=== PATIENT | female | born 1980 | race Caucasian/White ===

== ENCOUNTER 2016-08-15 19:22 | Emergency (ER) | payer BC ==
[~2016-08-15] VITALS: Ht 165.1 cm; Wt 81.7 kg
[2016-08-15 19:28] VITALS: Ht 165.1 cm; Wt 81.7 kg
[2016-08-15] MEDS ORDERED: OXYCODONE IR HOME PACK PO ONE (20:15)
[2016-08-15] MEDS ORDERED: MUPIROCIN 2% OINT 22 GM TUBE EXT ONE (20:15)
[2016-08-15] MEDS ORDERED: AMOXICIL/CLAVU 875MG HOME PACK PO ONE (20:15)
[2016-08-15] MEDS ORDERED: OXYC1TAB3 PO (20:17)
[2016-08-15] MEDS ORDERED: AMOX875T PO (20:17)
[2016-08-15 20:50] VITALS: BP 155/98; PULSE 94; TEMP 37.5; O2SAT 96
--- NOTE | 2016-08-15 23:19 | EMERGENCY ROOM VISIT NOTE ---
History First contact with patient: 19:50 Chief Complaint: OTHER COMPLAINT Stated Complaint: RT NIPPLE IS SWOLLEN AND RED AND HAS A LUMP IN IT History of Present Illness The patient is a 36 year old female who presents to the Emergency Room with complaints of pain and irritation to her right nipple for the past 4-5 days. The patient has not hydrated or discharge from the nipple. She is not breast- feeding. She is sexually active with her boyfriend. The patient has had a similar episode about 5 years ago, which resolved spontaneously. She does not have a history of MRSA. She is not having fever, chills, or redness of the breast itself. She does not have additional symptoms. Review of Systems More than 10 systems were reviewed and otherwise negative with the exception of history of present illness. Past Medical/Surgical History No chronic medical disease Family History No pertinent family history Social History Smoking Status: Current Every Day Smoker Current/Historical Medications Scheduled Amoxicillin & Pot Clavulanate (Augmentin 875-125 mg), 1 TAB PO BID Oxycodone Immediate Rel Tab (Roxicodone Ir), 5 MG PO Q6H Allergies Coded Allergies: No Known Allergies (Unverified , 11/08/15) Physical Exam Vital Signs Date Time Temp Pulse Resp B/P Pulse Ox O2 Delivery O2 Flow Rate FiO2 08/15/16 20:50 37.5 94 18 155/98 96 08/15/16 19:28 37.5 94 18 155/98 96 Room Air Pain Rating (0-10): 6.0 Physical Exam VITALS: Vitals are noted on the nurse's note and reviewed by myself. Vital signs stable. GENERAL: Well-developed, well-nourished, white female, who is in no acute distress and resting comfortably. Patient is cooperative with the examination. HEAD: Normocephalic atraumatic. HEART: Regular rate and rhythm without murmurs gallops or rubs. LUNGS: Clear to auscultation bilaterally without wheezes, rales or rhonchi. No retractions or accessory muscle use. CHEST: Examination was performed in the presence of female nursing slot floor person. The right nipple is erythematous and edematous. It is tender on palpation without drainage or discharge. No obvious fluctuance noted. No surrounding erythema or cellulitis of the breast. Medical Decision & Procedures Medications Administered Medications (Trade) Dose Ordered Sig/Daniel Route Start Time Stop Time Status Last Admin Dose Admin Amoxicillin/ Clavulanate Potassium (Augmentin 875MG Home Pack) 1 homepack UD ONCE PO 08/15/16 20:15 08/15/16 20:16 DC 08/15/16 20:42 1 HOMEPACK Oxycodone HCl (Roxicodone Immediate Rel 5MG Home Pack) 1 homepack UD ONCE PO 08/15/16 20:15 08/15/16 20:16 DC 08/15/16 20:42 1 HOMEPACK Mupirocin (Bactroban 2% Oint) 1 appln NOW ONCE EXT 08/15/16 20:15 08/15/16 20:16 DC 08/15/16 20:43 1 APPLN ED Course Physical exam and history were performed. Nursing notes and EMR were reviewed. Patient appears to have an infection of her right nipple. There is no obvious fluctuance on examination. I discussed the case with my attending physician, and we'll start patient on Augmentin. She will also be given topical Bactroban. I engaged case management, and had them provided her information for the breast care center, as she will likely need a surgical evaluation. The patient will be given a short course of OxyIR for pain control. I wrote a note for a few days off work. We discussed other conservative measures such as warm compresses. The patient was invited back to the emergency department anytime with new, worsening, or concerning symptoms. She voices understanding of this plan and rated her discomfort a 2/10 at the time of departure. The chart was completed utilizing [employer] Speech Voice Recognition Software. Grammatical errors, random word insertions, pronoun errors, and incomplete sentences are an occasional consequence of this system due to software limitations, ambient noise, and hardware issues. Any formal questions or concerns about the content, text, or information contained within the body of this dictation should be directly addressed to the provider for clarification. . Medical Decision Differential diagnosis: Etiologies such as cellulitis, abscess, MRSA infection, DVT, necrotizing fasciitis, dermatitis, drug eruption, as well as others were entertained.. Impression Primary Impression: Nipple infection in female Departure Information Dispostion Home / Self-Care Condition GOOD Prescriptions Oxycodone Immediate Rel Tab (ROXICODONE IR) 5 Mg Tab 5 MG PO Q6H for 3 Days, #12 TAB Prov: Clay Raya PA-C 08/15/16 Amoxicillin & Pot Clavulanate (Augmentin 875-125 mg) 1 Tab Tab 1 TAB PO BID for 9 Days, #18 TAB Prov: Clay Raya PA-C 08/15/16 Forms HOME CARE DOCUMENTATION FORM, Work Instructions, Additional Instructions: Patient was seen and evaluated today in the emergency department fo medical care. Return to work on 08/18/2016. Please excuse. IMPORTANT VISIT INFORMATION Patient Instructions My [facility] Additional Instructions You were seen and evaluated today on an emergency basis only. This is not a substitute for, or an effort to provide, complete comprehensive medical care. It is not possible to recognize and treat all injuries or illnesses in a single emergency department visit. For this reason it is recommended that you followup with the [facility] in the next 1-2 days for further care and evaluation. Contact them in the morning to help make the appointment. Amoxicillin Clavulanate (Augmentin) 875mg: Take one pill twice daily for 10 days for your infection. All antibiotics can cause diarrhea. If this occurs and you feel worse or it does not resolve in 1-2 days follow up with your doctor or return to the Emergency Department as this could be signs of serious underlying problems. Any medication can cause an allergic reaction, stop the pills immediately and return to the ER for rash, hives, breathing difficulties, or swelling. Oxycodone (OxyIR) 5mg: Take ONE pill every SIX hours for breakthrough pain. Avoid alcohol, operating machinery or dangerous equipment, working on ladders or roofs, DRIVING, or situations where being under the influence may be dangerous. It is recommended to use an [id number] stool softener such as Colace, 100mg twice daily while taking this medication to avoid constipation. For baseline pain relief you may alternate ibuprofen and acetaminophen every 4 hours for pain control. Take 600 mg ibuprofen (Advil) and then 4 hours later take 1000 mg acetaminophen (Tylenol). Do not take more than 3000 mg acetaminophen in a single day. Apply Bactroban 2-3 times daily You are welcome to return to the emergency department anytime with new, worsening, or concerning symptoms. Work Instructions Additional Work Instructions: Patient was seen and evaluated today in the emergency department for medical care. Return to work on 08/18/2016. Please excuse.
[2016-08-23] MEDS ORDERED: SULF800T23 PO (11:55)
[2016-08-23] MEDS ORDERED: CEPH500C2 PO (11:55)
== END 2016-08-15 20:51 | disposition home or self-care (01) ==
LOC: C.EDB 19:25 → C.EDA 20:51
DX: N61.0 Mastitis without abscess (principal); F17.210 Nicotine dependence, cigarettes, uncomplicated

== ENCOUNTER 2016-08-16 23:52 | Emergency (ER) | payer BC ==
[~2016-08-16] VITALS: Ht 165.1 cm; Wt 81.5 kg
[~2016-08-16 23:52] MED LIST: AMOX875T PO; OXYC1TAB3 PO
[2016-08-16 23:56] VITALS: Ht 165.1 cm; Wt 81.5 kg
[2016-08-17] MEDS ORDERED: KETOROLAC TROMETHAMINE 30 MG/ML VIAL IV STA (00:22)
[2016-08-17] MEDS ORDERED: ONDANSETRON INJ 2 MG/ML 2 ML VIAL IV STA (00:22)
[2016-08-17] MEDS ORDERED: SODIUM CHLORIDE 0.9% 1000ML 1,000 ML IV STA (00:22)
[2016-08-17] MEDS ORDERED: CEFTRIAXONE SOD INJ 1 GM ADDVIAL IV STA (00:27)
--- NOTE | 2016-08-17 00:29 | EMERGENCY ROOM VISIT NOTE ---
History Report prepared by Olga Lidia: Leonardo Zamorano Under the Supervision of: Dr. Hudson Santa D.O. First contact with patient: 00:04 Chief Complaint: INFECTION Stated Complaint: INFECTION IN RT BREAST Nursing Triage Summary: Patient c/o right breast pain. States, "I was seen here last night for this and went to my doctor today. They told me to come back in if it got worse and now it's spreading everywhere." Started on abx today. History of Present Illness The patient is a 36 year old female who presents to the Emergency Room with complaints of a worsening infection in her left breast that she acquired a few days prior to arrival. The patient states that she was in the Emergency Department yesterday and was prescribed Augmentin, and two other medications. She was told to return if the infection spread/worsened. She has been experiencing hot/cold flashes, but has not recorded any specific fevers. She denies any drainage from the infection. The patient also notes that she is now becoming nauseous. She is scheduled to see a specialist on of this week. Source of History: patient Onset: A few days APPLIED BEHAVIOR SPECIALIST Quality: other (Infection) Timing: waxes/wanes Associated Symptoms: + chills, + fevers, + nausea Review of Systems See HPI for pertinent positives & negatives. A total of 10 systems reviewed and were otherwise negative. Past Medical & Surgical Surgical Problems: (1) S/P ureteral reimplantation Family History Cancer Hypertension Social History Smoking Status: Current Every Day Smoker Marital Status: in relationship Housing Status: lives with family Occupation Status: employed Current/Historical Medications Scheduled Amoxicillin & Pot Clavulanate (Augmentin 875-125 mg), 1 TAB PO BID Oxycodone Immediate Rel Tab (Roxicodone Ir), 5 MG PO Q6H Sulfa/Trimethoprim (Bactrim Ds 800MG/160MG), 1 TAB PO BID Allergies Coded Allergies: No Known Allergies (Unverified , 08/17/16) Physical Exam Vital Signs Date Time Temp Pulse Resp B/P Pulse Ox O2 Delivery O2 Flow Rate FiO2 08/17/16 02:36 88 18 106/64 96 08/17/16 01:23 87 18 102/56 96 Room Air 08/16/16 23:56 96 18 136/89 97 Room Air Physical Exam GENERAL: Patient is awake, alert, and in no acute distress. Patient is resting comfortably and showing no signs of anxiety EYES: The conjunctivae are clear. The pupils are round and reactive. EARS, NOSE, MOUTH AND THROAT: The nose is without any evidence of any deformity. Mucous membranes are moist tongue is midline NECK: The neck is nontender and supple. RESPIRATORY: Normal respiratory effort is noted there is no evidence of wheezing rhonchi or rales CARDIOVASCULAR: Regular rate and rhythm noted there no murmurs rubs or gallops normal S1 normal S2 GASTROINTESTINAL: The abdomen is soft. Bowel sounds are present in all quadrants. Abdomen is nontender MUSCULOSKELETAL/EXTREMITIES: There is no evidence of gross deformity full range of motion is noted in the hips and shoulders SKIN: There is erythema and swelling on the right breast especially around the nipple. Cellulitis is present extending past the ink villalobos placed last evening. No discharge noted. There are no petechiae, pallor or cyanosis noted. NEUROLOGIC: Patient is awake alert and oriented x3 strength is symmetric patellar reflexes are 2+ bilaterally Medical Decision & Procedures ER Provider Diagnostic Interpretation: Ultrasound of the right breast was obtained in the emergency department. The report was reviewed. Preliminary Findings Only See Final Report For Complete Findings US RIGHT BREAST: Complex collection within a swollen nipple measuring approximately 1.7 cm x 0.9 cm x 1.9 cm. There is a shadowing echogenicity within this collection measuring up to 4 mm. Findings are nonspecific and could be related to underlying infection/abscess formation. Underlying malignancy is not ruled out and should be considered if symptoms do not resolve after appropriate therapy. Dilated ducts are also identified in the subareolar region. Close followup recommended. Radiologist: Suresh Peralta M.D. Study ready at 01:35 and initial results transmitted at 02:09 Laboratory Results 08/17/16 00:36 Red Blood Count 3.96, Mean Corpuscular Volume 88.4, Mean Corpuscular Hemoglobin 30.3, Mean Corpuscular Hemoglobin Concent 34.3, Mean Platelet Volume 9.6, Neutrophils (%) (Auto) 57.6, Lymphocytes (%) (Auto) 32.1, Monocytes (%) (Auto) 8.1, Eosinophils (%) (Auto) 1.6, Basophils (%) (Auto) 0.5, Neutrophils # (Auto) 5.65, Lymphocytes # (Auto) 3.16, Monocytes # (Auto) 0.80, Eosinophils # (Auto) 0.16, Basophils # (Auto) 0.05 08/17/16 00:36 Test 08/17/16 00:36 White Blood Count 9.83 K/uL (4.8-10.8) Red Blood Count 3.96 M/uL (4.2-5.4) Hemoglobin 12.0 g/dL (12.0-16.0) Hematocrit 35.0 % (37-47) Mean Corpuscular Volume 88.4 fL (80-100) Mean Corpuscular Hemoglobin 30.3 pg (25-34) Mean Corpuscular Hemoglobin Concent 34.3 g/dl (32-36) Platelet Count 284 K/uL (130-400) Mean Platelet Volume 9.6 fL (7.4-10.4) Neutrophils (%) (Auto) 57.6 % Lymphocytes (%) (Auto) 32.1 % Monocytes (%) (Auto) 8.1 % Eosinophils (%) (Auto) 1.6 % Basophils (%) (Auto) 0.5 % Neutrophils # (Auto) 5.65 K/uL (1.4-6.5) Lymphocytes # (Auto) 3.16 K/uL (1.2-3.4) Monocytes # (Auto) 0.80 K/uL (0.11-0.59) Eosinophils # (Auto) 0.16 K/uL (0-0.5) Basophils # (Auto) 0.05 K/uL (0-0.2) RDW Standard Deviation 45.8 fL (36.4-46.3) RDW Coefficient of Variation 14.1 % (11.5-14.5) Immature Granulocyte % (Auto) 0.1 % Immature Granulocyte # (Auto) 0.01 K/uL (0.00-0.02) Anion Gap 10.0 mmol/L (3-11) Est Creatinine Clear Calc Drug Dose 118.3 ml/min Estimated GFR () 130.1 Estimated GFR (Non- 112.3 BUN/Creatinine Ratio 18.1 (10-20) Calcium Level 8.6 mg/dl (8.5-10.1) Total Bilirubin < 0.1 mg/dl (0.2-1) Direct Bilirubin < 0.1 mg/dl (0-0.2) Aspartate Amino Transf (AST/SGOT) 11 U/L (15-37) Alanine Aminotransferase (ALT/SGPT) 18 U/L (12-78) Alkaline Phosphatase 95 U/L (45-117) Total Protein 6.8 gm/dl (6.4-8.2) Albumin 3.7 gm/dl (3.4-5.0) Human Chorionic Gonadotropin, Qual NEG (NEG) Laboratory results per my review. Medications Administered Medications (Trade) Dose Ordered Sig/Daniel Route Start Time Stop Time Status Last Admin Dose Admin Ketorolac Tromethamine 30 mg 30 mg NOW STAT IV 08/17/16 00:22 08/17/16 00:24 DC 08/17/16 00:46 30 MG Sodium Chloride (Nss 1000ml) 1,000 ml @ 999 mls/hr Q1H1M STAT IV 08/17/16 00:22 08/17/16 01:22 DC 08/17/16 00:44 999 MLS/HR Ondansetron HCl (Zofran Inj) 4 mg NOW STAT IV 08/17/16 00:22 08/17/16 00:24 DC 08/17/16 00:44 4 MG Ceftriaxone Sodium (Rocephin Inj) 1 gm NOW STAT IV 08/17/16 00:27 08/17/16 00:28 DC 08/17/16 00:47 1 GM Trimethoprim/ Sulfamethoxazole (Septra Ds 800/ 160MG Tab) 1 tab NOW STAT PO 08/17/16 01:05 08/17/16 01:06 DC 08/17/16 01:27 1 TAB ED Course 0019: The patient was evaluated in room B8. A complete history and physical examination were performed. 0022: Ordered Zofran 4 mg IV, Sodium Chloride 1000 mL @ 999 mL/hr IV, Toradol 30 mg IV. 0027: Ordered Rocephin 1 gm IV. 0105: Ordered Septra Dx 1 tabled PO. 0218: I discussed the case with Dr. Velasquez - General Surgery, he will see the patient in his office on Monday. 0230: After discussing the results of the visit with the patient she is agreeable to be discharged home and visit with Dr. Velasquez on Monday. Medical Decision The patient's history was concerning for swelling and redness of the skin. Differential diagnosis: Etiologies such as cellulitis, abscess, MRSA infection, DVT, necrotizing fasciitis, dermatitis, drug eruption, as well as others were entertained.. Nursing notes reviewed. The patient is a 36-year-old female who presented to emergency department for an evaluation of painful and red right breast. The patient was seen at day previous for a similar episode. She was placed on antibiotic. Ultrasound did reveal a small fluid collection but was not very large. The surrounding cellulitis does appear to be somewhat worsened. The patient was given a different antibiotic in the emergency department. She was also treated with IV fluids IV pain medicine IV antiemetics. I discussed her case with the on-call general surgeon. He is agreed to see the patient in close follow-up. If the antibiotic still not improved the patient's situation she will likely need to have this area drained. Given the fact it is on her breast I would defer this procedure to the surgeon. The patient was encouraged however to return to the emergency apartment immediately if symptoms change worsen or if the need arises. Consults Time Called: [phone] Consulting Physician: Dr. Velasquez - General Surgery Returned Call: [phone] I discussed the case with Dr. Velasquez - General Surgery, he will see the patient in his office on Monday. Impression Primary Impression: Nipple infection in female Scribe Attestation The scribe's documentation has been prepared under my direction and personally reviewed by me in its entirety. I confirm that the note above accurately reflects all work, treatment, procedures, and medical decision making performed by me. Departure Information Dispostion Home / Self-Care Prescriptions Sulfa/Trimethoprim (Bactrim Ds 800MG/160MG) Tab 1 TAB PO BID, #14 TAB Prov: Hudson Santa, 08/17/16 Referrals No Doctor, Assigned (PCP) Forms HOME CARE DOCUMENTATION FORM, IMPORTANT VISIT INFORMATION, WORK / SCHOOL INSTRUCTIONS Patient Instructions My [facility] Additional Instructions Continue using Motrin and Tylenol as directed for mild pain. Continue using the Augmentin. Stop using the doxycycline and start using the Bactrim as soon as possible. Follow-up with your family for reevaluation. Continue to use warm compresses to the area 2-3 times a day.
[2016-08-17 00:49] LABS: BASO % 0.5 %; BASO ABS # 0.05 K/uL (0-0.2); COMPLETE YES; EOS % 1.6 %; IG% 0.1 %; LYMPH % 32.1 %; LYMPH ABS # 3.16 K/uL (1.2-3.4); MEAN CELL VOLUME 88.4 fL (80-100); MEAN CORPUSCULAR HEMOGLOBIN 30.3 pg (25-34); MEAN CORPUSCULAR HGB CONC 34.3 g/dl (32-36); MEAN PLATELET VOLUME 9.6 fL (7.4-10.4); MONO % 8.1 %; NEUT % 57.6 %; PLATELET COUNT 284 K/uL (130-400); RED BLOOD COUNT 3.96 M/uL (4.2-5.4); WHITE BLOOD COUNT 9.83 K/uL (4.8-10.8)
[2016-08-17] MEDS ORDERED: SULFAMETHOXAZOLE/TRIMETHOPRIM DS 800/160MG TAB PO STA (01:05)
[2016-08-17 01:10] LABS: ALT/SGPT 18 U/L (12-78); AST/SGOT 11 U/L (15-37); BLOOD UREA NITROGEN 13 mg/dl (7-18); BUN/CREATININE RATIO 18.1 (10-20); CALCIUM 8.6 mg/dl (8.5-10.1); CARBON DIOXIDE 25 mmol/L (21-32); CHLORIDE 108 mmol/L (98-107); GLUCOSE 84 mg/dl (70-99); POTASSIUM 3.8 mmol/L (3.5-5.1); SODIUM 143 mmol/L (136-145)
[2016-08-17 01:13] LABS: ALKALINE PHOSPHATASE 95 U/L (45-117)
[2016-08-17 01:16] LABS: PREG INTERNAL NEGATIVE QC NEG CLEAR BACKGROUND; PREG INTERNAL POSITIVE QC POS CONTROL LINE
[2016-08-17] MEDS ORDERED: SULF800T23 PO (01:47)
[2016-08-17 02:36] VITALS: BP 106/64; PULSE 88; O2SAT 96
--- NOTE | 2016-08-17 07:17 | DIAGNOSTIC IMAGING REPORT ---
Right BREAST LIMITED ULTRASOUND CLINICAL HISTORY: right breast swelling COMPARISON STUDY: None. FINDINGS: Real-time sonographic imaging of the right periareolar breast was performed. There is edema within the right periareolar breast with a few borderline subareolar ducts. Focal complex collection within the subareolar breast which measures 1.7 x 1.9 x 0.9 cm. This contains a 4 mm slightly echogenic shadowing focus. This could represent a small abscess, dilated duct, or a mass. IMPRESSION: Focal complex collection within the right subareolar breast which measures 1.9 x 1.7 x 0.9 cm. This could represent a small abscess, dilated duct, or a mass. Follow-up imaging at a dedicated breast care center is recommended for further evaluation. Electronically signed by: Vitor Chávez M.D. 08/17/2016 7:16 AM Dictated Date/Time: 08/17/2016 7:12 AM
[2016-08-23] MEDS ORDERED: CEPH500C2 PO (11:55)
[2016-08-23] MEDS ORDERED: SULF800T23 PO (11:55)
== END 2016-08-17 02:36 | disposition home or self-care (01) ==
LOC: C.EDB 23:53
DX: N61.0 Mastitis without abscess (principal); Z82.49 Family history of ischemic heart disease and other diseases of the circulatory system; F17.200 Nicotine dependence, unspecified, uncomplicated

== ENCOUNTER 2016-08-19 10:13 | Inpatient (IN) | payer BC ==
[~2016-08-19] VITALS: Ht 165.1 cm; Wt 81.6 kg
[~2016-08-19 10:13] MED LIST changes: +SULF800T23 PO
[2016-08-19 12:13] VITALS: BP 106/72; PULSE 66; TEMP 36.7; O2SAT 95; Ht 165.1 cm; Wt 81.6 kg
[2016-08-19] MEDS ORDERED: ACETAMINOPHEN 325 MG TAB PO PRN (12:30)
[2016-08-19] MEDS ORDERED: MoRPHine SULFATE 4 MG/ML 1 ML CARP\\VIAL IV PRN (12:30)
[2016-08-19] MEDS ORDERED: ONDANSETRON INJ 2 MG/ML 2 ML VIAL IV PRN (12:30)
[2016-08-19] MEDS ORDERED: MoRPHine SULFATE 10 MG/ML CARP/VIAL IV PRN (12:30)
--- NOTE | 2016-08-19 12:37 | History and Physical ---
History & Physical Date & Time of Service: Aug 19, 2016 at 12:36 Chief Complaint: Right Breast Mastitis Primary Care Physician: No Doctor, Assigned History of Present Illness Source: patient pt began with right breast discomfort beginning Monday...was seen in ER monday early am for worsening symptoms. US showed very small/nondrainable fluid. she has been on oral antibiotics ever since. the redness/pain has worsened since then. no drainage. Past Medical/Surgical History Surgical Problems: (1) S/P ureteral reimplantation Status: Resolved Family History Cancer Hypertension Social History Smoking Status: Current Every Day Smoker Marital Status: in relationship Occupational Status: employed Multi-Drug Resistant Organisms History of MDRO: No Allergies Coded Allergies: No Known Allergies (Unverified , 08/17/16) Home Medications Scheduled Amoxicillin & Pot Clavulanate (Augmentin 875-125 mg), 1 TAB PO BID Sulfa/Trimethoprim (Bactrim Ds 800MG/160MG), 1 TAB PO BID Review of Systems Integumentary: + problem reported (as per HPI) Physical Exam General Appearance: + mild distress Head: normocephalic, atraumatic Eyes: EOMI ENT: hearing grossly normal Neck: supple, no adenopathy Respiratory/Chest: no respiratory distress, no accessory muscle use Cardiovascular: no edema, normal peripheral pulses Abdomen/GI: non tender, soft Extremities/Musculoskelatal: normal inspection Neurologic/Psych: normal mood/affect, oriented x 3 Skin: + pertinent finding (area of erythema on right breast. enlarged nipple. no defined abcess/fluid detectable. no nipple drainage. warm to touch. tender. ) Diagnostics Laboratory Results Results Past 24 Hours Test 08/19/16 12:26 Range/Units Impression Assessment and Plan right breast mastitis failing outpt treatment will admit/iv antibiotics US...if fluid, IR will attempt needle drainage OR drainage if last resort ID consult supportive care VTE Prophylaxis VTE Risk Assessment Done? Y/N: Yes Risk Level: Moderate Given or contraindicated: Enoxaparin (Lovenox)SQ
[2016-08-19] MEDS ORDERED: PIPERACILL/TAZOBAC CONSULT ACTIVE PRN (13:00)
[2016-08-19 13:09] LABS: BASO % 0.6 %; BASO ABS # 0.04 K/uL (0-0.2); COMPLETE YES; EOS % 0.1 %; HEMATOCRIT 33.3 % (37-47); IG% 0.3 %; LYMPH % 28.8 %; LYMPH ABS # 2.01 K/uL (1.2-3.4); MEAN CELL VOLUME 88.8 fL (80-100); MEAN CORPUSCULAR HEMOGLOBIN 30.7 pg (25-34); MEAN CORPUSCULAR HGB CONC 34.5 g/dl (32-36); MEAN PLATELET VOLUME 9.3 fL (7.4-10.4); MONO % 9.8 %; NEUT % 60.4 %; PLATELET COUNT 268 K/uL (130-400); RED BLOOD COUNT 3.75 M/uL (4.2-5.4); WHITE BLOOD COUNT 6.97 K/uL (4.8-10.8)
[2016-08-19] MEDS ORDERED: PIPERACILL/TAZOBAC IV 3.375 GM in DEXTROSE 5% 100ML 100 ML IV ONE (13:30)
[2016-08-19 13:39] LABS: BUN/CREATININE RATIO 12.2 (10-20); CALCIUM 8.6 mg/dl (8.5-10.1); CREATININE 0.6 mg/dl (0.60-1.20); POTASSIUM 3.7 mmol/L (3.5-5.1)
[2016-08-19 13:52] LABS: PREG INTERNAL NEGATIVE QC NEG CLEAR BACKGROUND; PREG INTERNAL POSITIVE QC POS CONTROL LINE
[2016-08-19 14:00] LABS: PROTHROMBIN TIME (PATIENT) 11.2 SECONDS (9.0-12.0)
[2016-08-19] MEDS: D5W AND 1/2NSS + 20MEQ KCL 1,000 ML IV SCH ×2 (14:01→22:42)
--- NOTE | 2016-08-19 14:06 | Medical Consult ---
Consultation Date of Consultation: Aug 19, 2016. Attending Physician: Devon Velasquez D.O. Reason for Consultation: mastitis History of Present Illness 36-year-old female in prior good health was well until approximately 10 days ago when she noted onset of redness and swelling of her right breast, with swelling of her right nipple. She eventually went to the emergency room where she was diagnosed with mastitis since started on oral Augmentin. She returned the next day with worsening redness and swelling, with ultrasound showing possibility of small developing abscess. She was given IV antibiotics in sent home on Bactrim, but was seen today by Dr. Velasquez, and referred for admission because of worsening redness, swelling, pain and tenderness. Has not had significant fever but some chills and fatigue. Has been started empirically on IV Zosyn. Of note, I took care of her son approximately 1 year ago for MRSA infection. Past Medical/Surgical History Medical Problems: (1) Nipple infection in female Status: Acute (2) Threatened in early Status: Acute (3) Vaginal bleeding in patient at less than 20 weeks gestation Status: Acute Medical Problems: (1) Mastitis in female (2) Mastitis in female Surgical Problems: (1) S/P ureteral reimplantation Family History Cancer Hypertension Social History Smoking Status: Current Every Day Smoker Marital Status: in relationship Housing Status: lives with family Occupation Status: employed Allergies Coded Allergies: No Known Allergies (Unverified , 08/17/16) Current Inpatient Medications Current Inpatient Medications Medications (Trade) Dose Ordered Sig/Daniel Route Start Time Stop Time Status Last Admin Dose Admin Enoxaparin Sodium 40 mg 40 mg DAILY SQ 08/20/16 09:00 09/19/16 08:59 UNV Potassium Chloride/Dextrose/ Sod Cl 1,000 ml @ 125 mls/hr Q8H IV 08/19/16 13:00 09/18/16 12:59 08/19/16 14:01 125 MLS/HR Piperacillin Sod/ Tazobactam Sod/ Dextrose (Zosyn Iv/D5 100ml) 115 ml @ 28.7 mls/hr Q8H IV 08/19/16 22:00 08/29/16 21:59 Ondansetron HCl (Zofran Inj) 4 mg Q4H PRN IV 08/19/16 12:30 09/18/16 12:29 Acetaminophen (Tylenol Tab) 650 mg Q6H PRN PO 08/19/16 12:30 09/18/16 12:29 Ibuprofen (Motrin Tab) 600 mg Q6H PRN PO 08/19/16 12:30 09/18/16 12:29 Acetaminophen/ Hydrocodone Bitart ([place] 5/325 Tab) 1 tab Q4H PRN PO 08/19/16 12:30 09/02/16 12:29 Morphine Sulfate (MoRPHine SULFATE INJ) 3 mg Q1H PRN IV 08/19/16 12:30 09/02/16 12:29 Acetaminophen/ Hydrocodone Bitart ([place] 5/325 Tab) 2 tab Q4H PRN PO 08/19/16 12:30 09/02/16 12:29 Morphine Sulfate (MoRPHine SULFATE INJ) 5 mg Q1H PRN IV 08/19/16 12:30 09/02/16 12:29 Diphenhydramine HCl (Benadryl Cap) 25 mg Q4H PRN PO 08/19/16 12:30 09/18/16 12:29 Piperacillin Sod/ Tazobactam Sod (Consult) 1 ea UD PRN N/A 08/19/16 13:00 09/18/16 12:59 Review of Systems Constitutional: + chills, + fatigue, No fever Eyes: No problem reported ENT: No problem reported Respiratory: No problem reported Cardiovascular: No problem reported Abdomen: No problem reported Musculoskeletal: No problem reported Genitourinary - Female: No problem reported Neurologic: No problem reported Psychiatric: No problem reported Endocrine: No problem reported Hematologic / Lymphatic: No problem reported Integumentary: + new/changing skin lesions Allergic / Immunologic: No problem reported Physical Exam Date Time Temp Pulse Resp B/P Pulse Ox O2 Delivery O2 Flow Rate FiO2 08/19/16 12:13 36.7 66 18 106/72 95 Room Air General Appearance: WD/WN, no apparent distress Head: normocephalic, atraumatic Eyes: normal inspection, EOMI, sclerae normal ENT: normal ENT inspection, hearing grossly normal, pharynx normal Neck: supple, no adenopathy, thyroid normal, trachea midline Respiratory/Chest: chest non-tender, lungs clear, normal breath sounds, no respiratory distress Cardiovascular: regular rate, rhythm, no gallop, no murmur Abdomen/GI: normal bowel sounds, non tender, soft, no organomegaly Back: normal inspection, no CVA tenderness Extremities/Musculoskelatal: no calf tenderness, normal capillary refill, non- tender Neurologic/Psych: alert, normal mood/affect, oriented x 3 Skin: normal color, warm/dry, + pertinent finding (right central breast swelling, erythema, and tenderness with enlarged niplle) Lymphatic: no adenopathy Laboratory Results Last 24 Hours Test 08/19/16 12:57 08/19/16 13:35 White Blood Count 6.97 K/uL Red Blood Count 3.75 M/uL Hemoglobin 11.5 g/dL Hematocrit 33.3 % Mean Corpuscular Volume 88.8 fL Mean Corpuscular Hemoglobin 30.7 pg Mean Corpuscular Hemoglobin Concent 34.5 g/dl Platelet Count 268 K/uL Mean Platelet Volume 9.3 fL Neutrophils (%) (Auto) 60.4 % Lymphocytes (%) (Auto) 28.8 % Monocytes (%) (Auto) 9.8 % Eosinophils (%) (Auto) 0.1 % Basophils (%) (Auto) 0.6 % Neutrophils # (Auto) 4.21 K/uL Lymphocytes # (Auto) 2.01 K/uL Monocytes # (Auto) 0.68 K/uL Eosinophils # (Auto) 0.01 K/uL Basophils # (Auto) 0.04 K/uL RDW Standard Deviation 45.9 fL RDW Coefficient of Variation 14.1 % Immature Granulocyte % (Auto) 0.3 % Immature Granulocyte # (Auto) 0.02 K/uL Sodium Level 137 mmol/L Potassium Level 3.7 mmol/L Chloride Level 105 mmol/L Carbon Dioxide Level 24 mmol/L Anion Gap 8.0 mmol/L Blood Urea Nitrogen 7 mg/dl Creatinine 0.60 mg/dl Est Creatinine Clear Calc Drug Dose 138.1 ml/min Estimated GFR () 136.9 Estimated GFR (Non- 118.1 BUN/Creatinine Ratio 12.2 Random Glucose 88 mg/dl Calcium Level 8.6 mg/dl Human Chorionic Gonadotropin, Qual NEG Prothrombin Time 11.2 SECONDS Prothromb Time International Ratio 1.0 Assessment & Plan Right mastitis with probable developing abscess. Worried about possible MRSA infection given family member with MRS last year. Will add vancomycin, await ultrasound for need for drainage. Will follow.
[2016-08-19] MEDS ORDERED: VANCOMYCIN CONSULT ACTIVE PRN (14:15)
--- NOTE | 2016-08-19 14:35 | Pharmacy Progress Note ---
Pharmacy Antibiotic Consult Date of Service: Aug 19, 2016. Pharmacy Dosing Scope Pharmacy is consulted to initiate VANC/ZOSYN-IV dosing therapy, order appropriate labs and adjust drug dose/frequency. Subjective The patient is a 36 year old female admitted on Aug 19, 2016 at 11:31 ordered broad spectrum antibiotics for worsened R mastitis and possible developing abscess. Pertinent PMH: failed out-pt therapy (seen in ED earlier in week on Augmentin/ Bactrim), family history for MRSA Objective Height (Feet): 5 Height (Inches): 5.00 Weight (Kilograms): 81.600 Lab Results (24hrs): Laboratory Tests Test 08/19/16 12:57 BUN/Creatinine Ratio 12.2 Blood Urea Nitrogen 7 mg/dl Creatinine 0.60 mg/dl White Blood Count 6.97 K/uL Red Blood Count 3.75 M/uL Hemoglobin 11.5 g/dL Hematocrit 33.3 % Mean Corpuscular Volume 88.8 fL Mean Corpuscular Hemoglobin 30.7 pg Mean Corpuscular Hemoglobin Concent 34.5 g/dl Platelet Count 268 K/uL Mean Platelet Volume 9.3 fL Neutrophils (%) (Auto) 60.4 % Lymphocytes (%) (Auto) 28.8 % Monocytes (%) (Auto) 9.8 % Eosinophils (%) (Auto) 0.1 % Basophils (%) (Auto) 0.6 % Neutrophils # (Auto) 4.21 K/uL Lymphocytes # (Auto) 2.01 K/uL Monocytes # (Auto) 0.68 K/uL Eosinophils # (Auto) 0.01 K/uL Basophils # (Auto) 0.04 K/uL Recent Pertinent Medications * Out-pt Augmentin/Bactrim Assessment & Plan ZOSYN-IV: 3.375 grams IV x 1, then 3.375g IV CI every 8 hours for est CRCL > 20mL/min. VANC-IV: * Estimated p'kinetics: Vd~07L/kg, Ke~0.1189hr-1, T1/2~5.8 hours * Loading dose: VANC 2000mg (25 mg/kg) IV X 1 dose then: * Maintenance Dose: VANC 1250mg (~15 mg/kg) IV every 8 hours. * Goal trough level estimate: between 15 - 20 mcg/mL. * VANC trough level has been ordered @ [facility] prior to 08/20/16 2000 dose. Pharmacy will continue to follow and will adjust dose/frequency as necessary. Thank you
[2016-08-19] MEDS ORDERED: VANCOMYCIN INJ 2,000 MG in SODIUM CHLORIDE 0.9% 500ML 500 ML IV ONE (14:45)
[2016-08-19] MEDS: HYDROCODONE/ACETAMOPHEN 5/325MG TAB PO PRN ×2 (15:36→20:00)
--- NOTE | 2016-08-19 15:45 | DIAGNOSTIC IMAGING REPORT ---
RIGHT BREAST ULTRASONOGRAPHY CLINICAL HISTORY: Progressive mastitis COMPARISON STUDY: 08/17/2016 FINDINGS: There is diffuse anterior breast edema. The nipple is markedly edematous. The nipple contains a complex fluid collection measuring 17 x 10 x 15 mm. Within this collection is a 4 mm hyperechoic lesion demonstrating shadowing. This could represent a papilloma or other ductal mass. IMPRESSION: 1. Anterior breast edema without evidence of a focal breast abscess 2. Markedly edematous right nipple containing a central complex fluid collection measuring 17 x 10 x 15 mm. Within this collection is a 4 mm hyperechoic lesion demonstrating shadowing. This could represent a papilloma, other ductal mass, or inspissated inflammatory debris. Biopsy might be considered in follow-up. Images findings were discussed with Dr. Velasquez. Electronically signed by: Maico Tolbert M.D. 08/19/2016 3:44 PM Dictated Date/Time: 08/19/2016 3:30 PM
[2016-08-19 16:40] VITALS: BP 104/66; PULSE 74; TEMP 36.8; O2SAT 95
[2016-08-19] MEDS ORDERED: NURSING VERBAL MED ORDER ONE ×2 (17:00→17:30)
[2016-08-19] MEDS ORDERED: NICOTINE 21 MG/24 HR TDSY EXT ONE (17:30)
[2016-08-19] MEDS ORDERED: INFLUENZA VIRUS QUAD VACCINE 0.5 ML SYR IM. ONE (18:00)
[2016-08-19] MEDS ORDERED: INFLUENZA ADMINISTRATION CHARGE ONE (18:00)
[2016-08-19] MEDS: VANCOMYCIN INJ 1,250 MG in SODIUM CHLORIDE 0.9% 250ML 250 ML IV SCH (20:00)
[2016-08-19] MEDS: IBUPROFEN 600 MG TAB PO PRN (20:00)
[2016-08-19] MEDS: PIPERACILL/TAZOBAC IV 3.375 GM in DEXTROSE 5% 100ML 100 ML IV SCH (22:42)
[2016-08-19 23:05] VITALS: BP 98/65; PULSE 71; TEMP 36.7; O2SAT 96
[2016-08-20] MEDS: HYDROCODONE/ACETAMOPHEN 5/325MG TAB PO PRN ×4 (01:34→20:50)
[2016-08-20] MEDS: IBUPROFEN 600 MG TAB PO PRN ×3 (03:23→20:50)
[2016-08-20] MEDS: VANCOMYCIN INJ 1,250 MG in SODIUM CHLORIDE 0.9% 250ML 250 ML IV SCH ×3 (03:23→19:41)
[2016-08-20] MEDS: PIPERACILL/TAZOBAC IV 3.375 GM in DEXTROSE 5% 100ML 100 ML IV SCH ×3 (05:47→22:17)
[2016-08-20] MEDS: D5W AND 1/2NSS + 20MEQ KCL 1,000 ML IV SCH ×3 (05:47→20:45)
--- NOTE | 2016-08-20 06:37 | Surgery Progress Note ---
Surgery Progress Note Date of Service Aug 20, 2016. Subjective Post OP Day: HD 2 + complaints (pain improved), + diet (regular), + feeling well, No nausea, No vomiting Objective Vital Signs: Date Time Temp Pulse Resp B/P Pulse Ox O2 Delivery O2 Flow Rate FiO2 08/19/16 23:05 36.7 71 15 98/65 96 Room Air 08/19/16 20:00 Room Air 08/19/16 17:13 Room Air 08/19/16 16:40 36.8 74 16 104/66 95 Room Air 08/19/16 12:13 36.7 66 18 106/72 95 Room Air General Appearance: WD/WN, no apparent distress Head: normocephalic, atraumatic Neck: supple, trachea midline Respiratory/Chest: lungs clear, + pertinent finding (right breast with less erythema; no fluctuance) Cardiovascular: regular rate, rhythm Abdomen: normal bowel sounds, non tender, non distended, soft Extremities: non-tender, no pedal edema Laboratory Results: Results Past 24 Hours Test 08/19/16 12:57 08/19/16 13:35 Range/Units White Blood Count 6.97 4.8-10.8 K/uL Red Blood Count 3.75 4.2-5.4 M/uL Hemoglobin 11.5 12.0-16.0 g/dL Hematocrit 33.3 37-47 % Mean Corpuscular Volume 88.8 80-100 fL Mean Corpuscular Hemoglobin 30.7 25-34 pg Mean Corpuscular Hemoglobin Concent 34.5 32-36 g/dl Platelet Count 268 130-400 K/uL Mean Platelet Volume 9.3 7.4-10.4 fL Neutrophils (%) (Auto) 60.4 % Lymphocytes (%) (Auto) 28.8 % Monocytes (%) (Auto) 9.8 % Eosinophils (%) (Auto) 0.1 % Basophils (%) (Auto) 0.6 % Neutrophils # (Auto) 4.21 1.4-6.5 K/uL Lymphocytes # (Auto) 2.01 1.2-3.4 K/uL Monocytes # (Auto) 0.68 0.11-0.59 K/uL Eosinophils # (Auto) 0.01 0-0.5 K/uL Basophils # (Auto) 0.04 0-0.2 K/uL RDW Standard Deviation 45.9 36.4-46.3 fL RDW Coefficient of Variation 14.1 11.5-14.5 % Immature Granulocyte % (Auto) 0.3 % Immature Granulocyte # (Auto) 0.02 0.00-0.02 K/uL Sodium Level 137 136-145 mmol/L Potassium Level 3.7 3.5-5.1 mmol/L Chloride Level 105 98-107 mmol/L Carbon Dioxide Level 24 21-32 mmol/L Anion Gap 8.0 3-11 mmol/L Blood Urea Nitrogen 7 7-18 mg/dl Creatinine 0.60 0.60-1.20 mg/dl Est Creatinine Clear Calc Drug Dose 138.1 ml/min Estimated GFR () 136.9 Estimated GFR (Non- 118.1 BUN/Creatinine Ratio 12.2 10-20 Random Glucose 88 70-99 mg/dl Calcium Level 8.6 8.5-10.1 mg/dl Human Chorionic Gonadotropin, Qual NEG NEG Prothrombin Time 11.2 9.0-12.0 SECONDS Prothromb Time International Ratio 1.0 0.9-1.1 Diagnostic Interpretation: RIGHT BREAST ULTRASONOGRAPHY CLINICAL HISTORY: Progressive mastitis COMPARISON STUDY: 08/17/2016 FINDINGS: There is diffuse anterior breast edema. The nipple is markedly edematous. The nipple contains a complex fluid collection measuring 17 x 10 x 15 mm. Within this collection is a 4 mm hyperechoic lesion demonstrating shadowing. This could represent a papilloma or other ductal mass. IMPRESSION: 1. Anterior breast edema without evidence of a focal breast abscess 2. Markedly edematous right nipple containing a central complex fluid collection measuring 17 x 10 x 15 mm. Within this collection is a 4 mm hyperechoic lesion demonstrating shadowing. This could represent a papilloma, other ductal mass, or inspissated inflammatory debris. Biopsy might be considered in follow-up. Images findings were discussed with Dr. Velasquez. Assessment & Plan Right breast mastitis -IV abx -improving -US with small complex with nothing obviously drainable
[2016-08-20 06:58] VITALS: BP 105/71; PULSE 71; TEMP 36.4; O2SAT 94
[2016-08-20] MEDS: NICOTINE 21 MG/24 HR TDSY EXT SCH (08:44)
[2016-08-20] MEDS: ENOXAPARIN 40 MG/0.4 ML SYR SQ SCH (08:45)
[2016-08-20 15:00] VITALS: BP 109/73; PULSE 68; TEMP 36.7; O2SAT 97
[2016-08-20] MEDS ORDERED: VANCOMYCIN TROUGH ONE (19:30)
--- NOTE | 2016-08-20 20:34 | Pharmacy Progress Note ---
Pharmacy Antibiotic Prog Note Date of Service: Aug 20, 2016. Subjective: The patient is currently receiving Vancomycin 1250 mg IV every 8 hours for R breast mastitis. The patient is currently on day # 2 of Vancomycin IV therapy. Objective: Height (Feet): 5 Height (Inches): 5.00 Weight (Kilograms): 81.600 Levels: Item Value Date Time Vancomycin Level Trough 20.3 mcg/ml 08/20/16 1930 Lab Results (24hrs): Item Value Date Time Creatinine 0.60 mg/dl 08/19/16 1257 Micro Results: Item Value Date Time Gram Stain Received 08/20/16 1603 Drainage - Surface Breast, Right Pending Recent Pertinent Medications: Item Value Date Time Piperacillin Sod/ 115 ml @ 28.7 mls/hr 08/19/16 2200 Tazobactam Sod Q8H/IV 08/20/16 1348 3.375 gm/Dextrose Vancomycin HCl 275 ml @ 125 mls/hr 08/19/16 2000 1250 mg/Sodium Q8H/IV 08/20/16 1941 Chloride Assessment & Plan: Patient noted to have wound site improving this morning. This Vancomycin trough drug level resides at the high end of the therapeutic range possibly pre-steady state, thus will widen the dosing interval slighty to shoot for the middle of the range as well as reducing risk of nephrotoxicity. Change to Vancomycin 1250 mg IV every 10 hours. Goal peak level estimate: between 30 - 40 mcg/mL. Goal trough level estimate: between 13 - 17 mcg/mL. Repeat Vancomycin trough level has been ordered for: 08/22/2016 prior to the noon dose. Pharmacy will continue to follow and will adjust dose/frequency as necessary. Thank you
[2016-08-20 22:55] VITALS: BP 94/62; PULSE 71; TEMP 36.6; O2SAT 94
[2016-08-21] MEDS: IBUPROFEN 600 MG TAB PO PRN (03:12)
[2016-08-21] MEDS: HYDROCODONE/ACETAMOPHEN 5/325MG TAB PO PRN ×4 (03:13→22:14)
[2016-08-21] MEDS: D5W AND 1/2NSS + 20MEQ KCL 1,000 ML IV SCH ×3 (04:15→21:41)
[2016-08-21] MEDS: VANCOMYCIN INJ 1,250 MG in SODIUM CHLORIDE 0.9% 250ML 250 ML IV SCH ×2 (05:48→15:42)
[2016-08-21] MEDS: PIPERACILL/TAZOBAC IV 3.375 GM in DEXTROSE 5% 100ML 100 ML IV SCH ×3 (05:48→21:41)
[2016-08-21 07:36] VITALS: BP 103/69; PULSE 74; TEMP 36.8; O2SAT 92
[2016-08-21] MEDS: ENOXAPARIN 40 MG/0.4 ML SYR SQ SCH (08:20)
[2016-08-21] MEDS: NICOTINE 21 MG/24 HR TDSY EXT SCH (08:20)
--- NOTE | 2016-08-21 10:24 | Surgery Progress Note ---
Surgery Progress Note Date of Service Aug 21, 2016. Subjective Post OP Day: HD 3 + complaints (less pain), + diet (regular), + feeling well, + pain controlled Objective Vital Signs: Date Time Temp Pulse Resp B/P Pulse Ox O2 Delivery O2 Flow Rate FiO2 08/21/16 07:36 36.8 74 20 103/69 92 Room Air 08/21/16 07:30 Room Air 08/20/16 23:50 Room Air 08/20/16 22:55 36.6 71 14 94/62 94 Room Air 08/20/16 15:15 Room Air 08/20/16 15:00 36.7 68 20 109/73 97 Room Air General Appearance: WD/WN, no apparent distress Head: normocephalic, atraumatic Neck: supple, trachea midline Respiratory/Chest: lungs clear, + pertinent finding (less tender and less erythema; some fluid expressed from nipple- sent for Cx) Cardiovascular: regular rate, rhythm Abdomen: normal bowel sounds, non tender, non distended, soft Extremities: non-tender, no pedal edema Laboratory Results: Results Past 24 Hours Test 08/20/16 19:30 Range/Units Vancomycin Level Trough 20.3 SEE COMMENT mcg/ml Microbiology Results 08/20/16 Gram Stain - Final, Resulted 08/20/16 Wound Culture, Resulted Pending Assessment & Plan Right breast mastitis -nipple swollen with some drainage- sent for Cx -improving -IV abx -US with small complex with nothing obviously drainable
[2016-08-21 15:36] VITALS: BP 123/82; PULSE 66; TEMP 37; O2SAT 96
[2016-08-21 23:23] VITALS: BP 95/62; PULSE 63; TEMP 36.8; O2SAT 94
[2016-08-22] MEDS: VANCOMYCIN INJ 1,250 MG in SODIUM CHLORIDE 0.9% 250ML 250 ML IV SCH ×3 (01:32→20:51)
[2016-08-22] MEDS: D5W AND 1/2NSS + 20MEQ KCL 1,000 ML IV SCH ×3 (05:26→20:54)
[2016-08-22] MEDS: PIPERACILL/TAZOBAC IV 3.375 GM in DEXTROSE 5% 100ML 100 ML IV SCH ×3 (05:26→20:51)
[2016-08-22] MEDS: HYDROCODONE/ACETAMOPHEN 5/325MG TAB PO PRN ×2 (06:34→20:58)
[2016-08-22 06:41] LABS: HEMATOCRIT 31.1 % (37-47); MEAN CELL VOLUME 89.9 fL (80-100); MEAN CORPUSCULAR HEMOGLOBIN 29.8 pg (25-34); MEAN CORPUSCULAR HGB CONC 33.1 g/dl (32-36); PLATELET COUNT 246 K/uL (130-400); RED BLOOD COUNT 3.46 M/uL (4.2-5.4); WHITE BLOOD COUNT 5.33 K/uL (4.8-10.8)
[2016-08-22 07:00] LABS: CREATININE 0.89 mg/dl (0.60-1.20)
[2016-08-22 07:19] VITALS: BP 110/77; PULSE 67; TEMP 36.9; O2SAT 96
[2016-08-22] MEDS: NICOTINE 21 MG/24 HR TDSY EXT SCH (07:44)
[2016-08-22] MEDS: ENOXAPARIN 40 MG/0.4 ML SYR SQ SCH (07:45)
--- NOTE | 2016-08-22 09:24 | Surgery Progress Note ---
Surgery Progress Note Date of Service Aug 22, 2016. Subjective pt overall feeling much better. pain improved. redness improved she started yesterday having some purulent drainage at superior aspect of her nipple which she is self expressing several times/day Objective Vital Signs: Date Time Temp Pulse Resp B/P Pulse Ox O2 Delivery O2 Flow Rate FiO2 08/22/16 07:40 Room Air 08/22/16 07:19 36.9 67 16 110/77 96 Room Air 08/21/16 23:50 Room Air 08/21/16 23:23 36.8 63 16 95/62 94 Room Air 08/21/16 15:36 37.0 66 18 123/82 96 Room Air 08/21/16 15:30 Room Air General Appearance: no apparent distress Head: normocephalic, atraumatic Neck: supple Respiratory/Chest: chest non-tender Abdomen: non tender, non distended, soft Extremities: non-tender, no pedal edema Laboratory Results: Results Past 24 Hours Test 08/22/16 06:20 Range/Units White Blood Count 5.33 4.8-10.8 K/uL Red Blood Count 3.46 4.2-5.4 M/uL Hemoglobin 10.3 12.0-16.0 g/dL Hematocrit 31.1 37-47 % Mean Corpuscular Volume 89.9 80-100 fL Mean Corpuscular Hemoglobin 29.8 25-34 pg Mean Corpuscular Hemoglobin Concent 33.1 32-36 g/dl RDW Standard Deviation 46.7 36.4-46.3 fL RDW Coefficient of Variation 14.2 11.5-14.5 % Platelet Count 246 130-400 K/uL Mean Platelet Volume 9.0 7.4-10.4 fL Creatinine 0.89 0.60-1.20 mg/dl Est Creatinine Clear Calc Drug Dose 93.1 ml/min Estimated GFR () 97.3 Estimated GFR (Non- 84.0 Assessment & Plan clincially improving cx no growth to date will await ID input for antibiotics/duration at discharge likely d/c home tomorrow
--- NOTE | 2016-08-22 09:44 | Infectious Disease Progress Nt ---
Progress Note Date of Service Aug 22, 2016. Subjective Pt evaluation today including: conversation w/ patient, physical exam, chart review, lab review, review of studies, conversation w/ sql server consultant, review of inpatient medication list Much better this AM. Having drainage from nipple, erythema much less. No fever. All Other Systems: Reviewed and Negative Medications Current Inpatient Medications Medications (Trade) Dose Ordered Sig/Daniel Route Start Time Stop Time Status Last Admin Dose Admin Enoxaparin Sodium 40 mg 40 mg DAILY SQ 08/20/16 09:00 09/19/16 08:59 08/22/16 07:45 40 MG Potassium Chloride/Dextrose/ Sod Cl 1,000 ml @ 125 mls/hr Q8H IV 08/19/16 13:00 09/18/16 12:59 08/22/16 05:26 125 MLS/HR Piperacillin Sod/ Tazobactam Sod/ Dextrose (Zosyn Iv/D5 100ml) 115 ml @ 28.7 mls/hr Q8H IV 08/19/16 22:00 08/29/16 21:59 08/22/16 05:26 28.7 MLS/HR Ondansetron HCl (Zofran Inj) 4 mg Q4H PRN IV 08/19/16 12:30 09/18/16 12:29 08/20/16 19:45 4 MG Acetaminophen (Tylenol Tab) 650 mg Q6H PRN PO 08/19/16 12:30 09/18/16 12:29 Ibuprofen (Motrin Tab) 600 mg Q6H PRN PO 08/19/16 12:30 09/18/16 12:29 08/21/16 03:12 600 MG Acetaminophen/ Hydrocodone Bitart ([place] 5/325 Tab) 1 tab Q4H PRN PO 08/19/16 12:30 09/02/16 12:29 08/22/16 06:34 1 TAB Morphine Sulfate (MoRPHine SULFATE INJ) 3 mg Q1H PRN IV 08/19/16 12:30 09/02/16 12:29 Acetaminophen/ Hydrocodone Bitart ([place] 5/325 Tab) 2 tab Q4H PRN PO 08/19/16 12:30 09/02/16 12:29 08/21/16 22:14 2 TAB Morphine Sulfate (MoRPHine SULFATE INJ) 5 mg Q1H PRN IV 08/19/16 12:30 09/02/16 12:29 Diphenhydramine HCl (Benadryl Cap) 25 mg Q4H PRN PO 08/19/16 12:30 09/18/16 12:29 Piperacillin Sod/ Tazobactam Sod (Consult) 1 ea UD PRN N/A 08/19/16 13:00 09/18/16 12:59 Vancomycin HCl (Consult) 1 ea UD PRN N/A 08/19/16 14:15 09/18/16 14:14 Nicotine (Nicoderm Cq 21MG Patch) 1 patch QAM EXT 08/20/16 09:00 09/19/16 08:59 08/22/16 07:44 1 PATCH Miscellaneous 1 ea 1 ea QAM N/A 08/20/16 09:00 09/19/16 08:59 08/20/16 08:44 1 EA Vancomycin HCl/ Sodium Chloride (Vancomycin Inj/ Nss 250ml) 275 ml @ 125 mls/hr Q10H IV 08/21/16 06:00 08/29/16 19:59 08/22/16 01:32 125 MLS/HR Objective Vital Signs Date Time Temp Pulse Resp B/P Pulse Ox O2 Delivery O2 Flow Rate FiO2 08/22/16 07:40 Room Air 08/22/16 07:19 36.9 67 16 110/77 96 Room Air 08/21/16 23:50 Room Air 08/21/16 23:23 36.8 63 16 95/62 94 Room Air 08/21/16 15:36 37.0 66 18 123/82 96 Room Air 08/21/16 15:30 Room Air Physical Exam General Appearance: WD/WN, no apparent distress Eyes: normal inspection, sclerae normal ENT: normal ENT inspection, pharynx normal Neck: supple, no adenopathy, trachea midline Respiratory/Chest: chest non-tender, lungs clear, normal breath sounds, no respiratory distress Cardiovascular: regular rate, rhythm, no gallop, no murmur Abdomen: normal bowel sounds, non tender, soft, no organomegaly Extremities: non-tender, no calf tenderness Neurologic/Psychiatric: alert, oriented x 3 Skin: normal color, no rash, + pertinent finding (much improved right breast erythema, nipple less swollen, some drainage) Lymphatic: no adenopathy Laboratory Results RUN DATE: 08/22/16 [facility] LAB PAGE 1 RUN TIME: 08 Specimen Inquiry PATIENT: JEN KWON LOC: ErinDARIANA U # : [id number] AGE/SX: 36/F ROOM: [facility] REG : 08/19/[address]: Devon Velasquez D.O : 1980 BED: 1 DIS : STATUS: ADM IN TLOC: SPEC #: [id number] RAGHU: 08/20/16 STATUS: RES REQ #: [id number] RECD: 08/20/[address] [facility] [address]: Jamal Hernandez M.D. SOURCE: DRAIN-SURF ENTR: 08/20/16 [facility] DR: David Perales MD SPDESC: Sree ALVAREZ Matthew D. D.O. No Doctor, Assigned ORDERED: LENKA LAI /PEREZ COMMENTS: Specimen Comment right nipple drainage Has Specimen Been Obtained/Collected? Y Procedure Result Verified Site GRAM STAIN Final 08/21/16-1013 RESULT RARE WBCs SEEN RARE GRAM POSITIVE BACILLI SURFACE WOUND CULTURE Preliminary 08/22/16-857 <No reportable results for this procedure> Last 24 Hours Test 08/22/16 06:20 White Blood Count 5.33 K/uL Red Blood Count 3.46 M/uL Hemoglobin 10.3 g/dL Hematocrit 31.1 % Mean Corpuscular Volume 89.9 fL Mean Corpuscular Hemoglobin 29.8 pg Mean Corpuscular Hemoglobin Concent 33.1 g/dl RDW Standard Deviation 46.7 fL RDW Coefficient of Variation 14.2 % Platelet Count 246 K/uL Mean Platelet Volume 9.0 fL Creatinine 0.89 mg/dl Est Creatinine Clear Calc Drug Dose 93.1 ml/min Estimated GFR () 97.3 Estimated GFR (Non- 84.0 Patient Name: JEN KWON Unit Number: [id number] Dictated: 08/19/161529 Transcribed: 08/19/161529 ARG Printed Date/Time: [~ rep prt dt]/[~ rep prt tm] [~ rep ct labl] - [~ rep ct ivnm] [facility] Radiology Department [place], [place] [address] Dictated: 08/19/16 1530 Transcribed: 08/19/16 153 ARG Printed Date/Time: [~ rep prt dt]/[~ rep prt tm] [~ rep ct labl] - [~ rep ct ivnm] RIGHT BREAST ULTRASONOGRAPHY CLINICAL HISTORY: Progressive mastitis COMPARISON STUDY: 08/17/2016 FINDINGS: There is diffuse anterior breast edema. The nipple is markedly edematous. The nipple contains a complex fluid collection measuring 17 x 10 x 15 mm. Within this collection is a 4 mm hyperechoic lesion demonstrating shadowing. This could represent a papilloma or other ductal mass. IMPRESSION: 1. Anterior breast edema without evidence of a focal breast abscess 2. Markedly edematous right nipple containing a central complex fluid collection measuring 17 x 10 x 15 mm. Within this collection is a 4 mm hyperechoic lesion demonstrating shadowing. This could represent a papilloma, other ductal mass, or inspissated inflammatory debris. Biopsy might be considered in follow-up. Images findings were discussed with Dr. Velasquez. Electronically signed by: Maico Tolbert M.D. 08/19/2016 3:44 PM Dictated Date/Time: 08/19/2016 3:30 PM The status of this report is Signed. Draft = Not yet reviewed or approved by Radiologist. Signed = Reviewed and approved by Radiologist. <AttendingPhy>Devon Velasquez D.O.</AttendingPhy> <FamilyPhy>No Doctor, Assigned</FamilyPhy> <PrimaryPhy>No Doctor, Assigned</PrimaryPhy> <UnitNumber> [id number]</UnitNumber> <VisitNumber>[id number]</VisitNumber> <PatientName> JEN KWON</PatientName> <DateOfBirth>1980</DateOfBirth> <Location> C.MSN</Location> <ServiceDate></ServiceDate> <MNE>ESINDI</MNE> <OrderingPhy> Devon Velasquez D.O.</OrderingPhy> <OrderingPhyMNE>f rep ord dr wells</ OrderingPhyMNE> <DictatingPhyMNE>f rep dict dr wells</DictatingPhyMNE> <CCListMNE> f rep ct mne</CCListMNE> <AdmittingPhyMNE>f pt admit dr wells</AdmittingPhyMNE> < AttendingPhyMNE>f pt attend dr wells</AttendingPhyMNE> <ConsultingPhyMNE>f pt consult dr wells</ConsultingPhyMNE> <FamilyPhyMNE>f pt fam dr wells</FamilyPhyMNE> <OtherPhyMNE>f pt other dr wells</OtherPhyMNE> < PrimaryPhyMNE>f pt prim care dr wells</PrimaryPhyMNE> <ReferringPhyMNE>f pt referring dr wells</ReferringPhyMNE> Assessment and Plan Right mastitis/cellulitis with probable developing nipple abscess. Worried about possible MRSA infection given family member with MRSA last year. Will continue IV Abx through today awaiting final culture results, then consider tomorrow whether can transition to oral Abx. Will follow.
[2016-08-22] MEDS ORDERED: VANCOMYCIN TROUGH ONE (11:30)
[2016-08-22] MEDS: IBUPROFEN 600 MG TAB PO PRN ×2 (12:09→18:52)
--- NOTE | 2016-08-22 14:20 | Pharmacy Progress Note ---
Pharmacy Antibiotic Prog Note Date of Service: Aug 22, 2016. Subjective: The patient is currently receiving Vancomycin 1250 mg IV every [] hours. The patient is currently on day # 4 of Vancomycin IV therapy. Objective: Height (Feet): 5 Height (Inches): 5.00 Weight (Kilograms): 81.600 Levels: Item Value Date Time Vancomycin Level Trough 15.8 mcg/ml 08/22/16 1144 Lab Results (24hrs): Laboratory Tests Test 08/22/16 06:20 Creatinine 0.89 mg/dl White Blood Count 5.33 K/uL Micro Results: Item Value Date Time Gram Stain - Final Resulted 08/20/16 1603 Drainage - Surface Breast, Right Recent Pertinent Medications: Item Value Date Time Piperacillin Sod/ 115 ml @ 28.7 mls/hr 08/19/16 2200 Tazobactam Sod Q8H/IV 08/22/16 0526 3.375 gm/Dextrose Assessment & Plan: This drug level is: Therapeutic. Will continue same regimen. Dr. Perales feels IV ABX therapy should continue at least one more day or until culture is final. Will then convert to PO agent. Goal trough level estimate: between 15-20 mcg/mL. Pharmacy will continue to follow and will adjust dose/frequency as necessary. Thank you
[2016-08-22 15:59] VITALS: BP 115/80; PULSE 63; TEMP 36.8; O2SAT 96
[2016-08-22 16:30] VITALS: O2SAT 96
[2016-08-22 23:10] VITALS: BP 123/84; PULSE 65; TEMP 36.6; O2SAT 96
[2016-08-23] MEDS: PIPERACILL/TAZOBAC IV 3.375 GM in DEXTROSE 5% 100ML 100 ML IV SCH (05:38)
[2016-08-23] MEDS: D5W AND 1/2NSS + 20MEQ KCL 1,000 ML IV SCH (05:38)
[2016-08-23 07:11] VITALS: BP 111/72; PULSE 72; TEMP 36.8; O2SAT 92
[2016-08-23] MEDS: VANCOMYCIN INJ 1,250 MG in SODIUM CHLORIDE 0.9% 250ML 250 ML IV SCH (07:41)
--- NOTE | 2016-08-23 08:55 | Surgery Progress Note ---
Surgery Progress Note Date of Service Aug 23, 2016. Subjective + feeling well continues to improve daily. drainage dramatically decreased/minimal now. minimal pain. overall feels well/would like to go home Objective Vital Signs: Date Time Temp Pulse Resp B/P Pulse Ox O2 Delivery O2 Flow Rate FiO2 08/23/16 08:26 Room Air 08/23/16 07:11 36.8 72 16 111/72 92 Room Air 08/22/16 23:25 Room Air 08/22/16 23:10 36.6 65 16 123/84 96 Room Air 08/22/16 16:30 96 Room Air 08/22/16 15:59 36.8 63 16 115/80 96 Room Air General Appearance: no apparent distress Head: normocephalic Neck: supple Respiratory/Chest: no respiratory distress, no accessory muscle use, + pertinent finding (much improved mastitis. minimal erthema. no warmth. no drainage this am. ) Abdomen: non tender, soft Extremities: normal range of motion, non-tender Laboratory Results: Results Past 24 Hours Test 08/22/16 11:44 Range/Units Vancomycin Level Trough 15.8 SEE COMMENT mcg/ml Assessment & Plan 08/23/16 doing well clinically. erythema resolved/minimal drainage will need mammogram/possible bx as outpt after mastitis resolves will d/w dr. mitchell regarding d/c antibiotic regiment 08/22/16 clincially improving cx no growth to date will await ID input for antibiotics/duration at discharge likely d/c home tomorrow clincially improving cx no growth to date will await ID input for antibiotics/duration at discharge likely d/c home tomorrow
[2016-08-23] MEDS: NICOTINE 21 MG/24 HR TDSY EXT SCH (09:13)
[2016-08-23] MEDS: ENOXAPARIN 40 MG/0.4 ML SYR SQ SCH (09:14)
--- NOTE | 2016-08-23 09:50 | Infectious Disease Progress Nt ---
Progress Note Date of Service Aug 23, 2016. Subjective Pt evaluation today including: conversation w/ patient, physical exam, chart review, lab review, review of studies, conversation w/ senior research consultant, review of inpatient medication list Feeling better. Pain decreasing steadily. No fever. Culture with beta-hemolytic group F Strep. No other new complaints except mild headache. All Other Systems: Reviewed and Negative Medications Current Inpatient Medications Medications (Trade) Dose Ordered Sig/Daniel Route Start Time Stop Time Status Last Admin Dose Admin Enoxaparin Sodium 40 mg 40 mg DAILY SQ 08/20/16 09:00 09/19/16 08:59 08/23/16 09:14 40 MG Potassium Chloride/Dextrose/ Sod Cl 1,000 ml @ 125 mls/hr Q8H IV 08/19/16 13:00 09/18/16 12:59 08/23/16 05:38 125 MLS/HR Piperacillin Sod/ Tazobactam Sod/ Dextrose (Zosyn Iv/D5 100ml) 115 ml @ 28.7 mls/hr Q8H IV 08/19/16 22:00 08/29/16 21:59 08/23/16 05:38 28.7 MLS/HR Ondansetron HCl (Zofran Inj) 4 mg Q4H PRN IV 08/19/16 12:30 09/18/16 12:29 08/20/16 19:45 4 MG Acetaminophen (Tylenol Tab) 650 mg Q6H PRN PO 08/19/16 12:30 09/18/16 12:29 08/23/16 09:14 650 MG Ibuprofen (Motrin Tab) 600 mg Q6H PRN PO 08/19/16 12:30 09/18/16 12:29 08/22/16 18:52 600 MG Acetaminophen/ Hydrocodone Bitart ([place] 5/325 Tab) 1 tab Q4H PRN PO 08/19/16 12:30 09/02/16 12:29 08/22/16 20:58 1 TAB Morphine Sulfate (MoRPHine SULFATE INJ) 3 mg Q1H PRN IV 08/19/16 12:30 09/02/16 12:29 Acetaminophen/ Hydrocodone Bitart ([place] 5/325 Tab) 2 tab Q4H PRN PO 08/19/16 12:30 09/02/16 12:29 08/21/16 22:14 2 TAB Morphine Sulfate (MoRPHine SULFATE INJ) 5 mg Q1H PRN IV 08/19/16 12:30 09/02/16 12:29 Diphenhydramine HCl (Benadryl Cap) 25 mg Q4H PRN PO 08/19/16 12:30 09/18/16 12:29 Piperacillin Sod/ Tazobactam Sod (Consult) 1 ea UD PRN N/A 08/19/16 13:00 09/18/16 12:59 Vancomycin HCl (Consult) 1 ea UD PRN N/A 08/19/16 14:15 09/18/16 14:14 Nicotine (Nicoderm Cq 21MG Patch) 1 patch QAM EXT 08/20/16 09:00 09/19/16 08:59 08/23/16 09:13 1 PATCH Miscellaneous 1 ea 1 ea QAM N/A 08/20/16 09:00 09/19/16 08:59 08/23/16 09:14 1 EA Vancomycin HCl/ Sodium Chloride (Vancomycin Inj/ Nss 250ml) 275 ml @ 125 mls/hr Q10H IV 08/21/16 06:00 08/29/16 19:59 08/23/16 07:41 125 MLS/HR Objective Vital Signs Date Time Temp Pulse Resp B/P Pulse Ox O2 Delivery O2 Flow Rate FiO2 08/23/16 08:26 Room Air 08/23/16 07:11 36.8 72 16 111/72 92 Room Air 08/22/16 23:25 Room Air 08/22/16 23:10 36.6 65 16 123/84 96 Room Air 08/22/16 16:30 96 Room Air 08/22/16 15:59 36.8 63 16 115/80 96 Room Air Physical Exam General Appearance: WD/WN, no apparent distress Eyes: normal inspection, EOMI, sclerae normal ENT: normal ENT inspection, pharynx normal Neck: supple, no adenopathy, trachea midline Respiratory/Chest: chest non-tender, lungs clear, normal breath sounds, no respiratory distress Cardiovascular: regular rate, rhythm, no gallop, no murmur Abdomen: normal bowel sounds, non tender, soft Extremities: non-tender, no calf tenderness Neurologic/Psychiatric: alert, normal mood/affect, oriented x 3 Skin: normal color, no rash, + pertinent finding (improving cellulitis right breast.) Lymphatic: no adenopathy Laboratory Results RUN DATE: 08/23/16 [facility] PAGE 1 RUN TIME: 0833 Specimen Inquiry PATIENT: JEN KWON LOC: [facility] U # : [id number] AGE/SX: 36/F ROOM: [facility] REG : 08/19/[address]: Devon Velasquez D.O : 1980 BED: 1 DIS : STATUS: ADM IN TLOC: SPEC #: [id number] RAGHU: 08/20/16 STATUS: RES REQ #: [id number] RECD: 08/20/[address]: Jamal Hernandez M.D. SOURCE: DRAIN-SURF ENTR: 08/20/16 [facility] DR: David Perales MD SPDESC: Sree ALVAREZ Matthew D. D.O. No Doctor, Assigned ORDERED: SURF JOELLE /PEREZ COMMENTS: Specimen Comment right nipple drainage Has Specimen Been Obtained/Collected? Y Procedure Result Verified Site GRAM STAIN Final 08/21/16-1013 RESULT RARE WBCs SEEN RARE GRAM POSITIVE BACILLI SURFACE WOUND CULTURE Preliminary 08/23/16 Organism 1 ALPHA STREP. NOT ENTEROCOCCUS QUANITY FEW SENS NO SENSITIVITY TO FOLLOW Organism 2 BETA HEMOLYTIC STREP GROUP F QUANITY RARE SENS NON-VIABLE FOR SENSITIVITIES END OF REPORT Last 24 Hours Test 08/22/16 11:44 Vancomycin Level Trough 15.8 mcg/ml Assessment and Plan Right mastitis with cellulitis and nipple abscess, improved with IV Abx. Think that patient can transition to oral therapy and recommend combination of Bactrim DS 1 bid and cephalexin 500 qid for 10 days.
[2016-08-23] MEDS ORDERED: SULF800T23 PO (11:55)
[2016-08-23] MEDS ORDERED: CEPH500C2 PO (11:55)
--- NOTE | 2016-08-23 12:31 | DISCHARGE SUMMARY ---
DISCHARGE DIAGNOSIS: Right breast mastitis. CONSULTANTS: Dr. Perales from Infectious Disease. SUMMARY: This is a 36-year-old female who presented with worsening erythema and pain in the right breast despite oral antibiotics. I had seen her in the office on 08/19/2016, and admitted her to the hospital for IV antibiotics as well as Infectious Disease consultation. During her hospital stay she did undergo an ultrasound which did show some inflammation as well as a very small echogenic mass behind the nipple as well as a small amount of fluid. She was also seen by Dr. Perales in consultation who knew her from seeing her son in the past for MRSA infections. She was started on IV vancomycin as well as Unasyn. During her hospital stay the superior portion of the nipple there was some purulent fluid that began spontaneously draining on its own. This was cultured and turned out to be alpha strep strain. During her hospital stay she got better every single day. By 08/23/2016 the erythema was almost completely resolved and there was minimal drainage. Her pain was almost resolved as well. She was deemed stable for discharge. Per Dr. Perales she could go home on 10 days of cephalexin as well as Bactrim DS. She was discharged home with written and oral instructions and was to followup with myself in the office within a 1-week period.
[2016-08-23 12:49] VITALS: BP 111/72; PULSE 72; TEMP 36.8; O2SAT 92
== END 2016-08-23 13:11 | disposition home or self-care (01) | DRG 601 ==
LOC: C.MSN 11:31
PROVIDERS: ADMIT Surgery; ATTEND Surgery
DX: N61.1 Abscess of the breast and nipple (principal); F17.210 Nicotine dependence, cigarettes, uncomplicated; Z88.2 Allergy status to sulfonamides; B95.5 Unspecified streptococcus as the cause of diseases classified elsewhere

== ENCOUNTER → 2016-09-28 | Outpatient (CLI) | payer BC ==
[~2016-09-28] MED LIST changes: -AMOX875T PO; +CEPH500C2 PO; -OXYC1TAB3 PO
--- NOTE | 2016-09-28 15:31 | MAMMOGRAPHY REPORT ---
BILATERAL DIGITAL DIAGNOSTIC MAMMOGRAM TOMOSYNTHESIS WITH CAD AND TARGETED RIGHT ULTRASOUND: CLINICAL HISTORY: 36-year-old woman with recent 4 day hospitalization including IV antibiotics for a right breast subareolar abscess. TECHNIQUE: Bilateral breast tomosynthesis in addition to standard 2D mammography was performed. Curr ent study was also evaluated with a Computer Aided Detection (CAD) system. COMPARISON: Prior right breast ultrasound performed 08/19/2016. BREAST COMPOSITION: The tissue of the right breast is extremely dense, which lowers the sensitivity of mammography. There are scattered areas of fibroglandular density in the left breast. FINDINGS: There is minimal asymmetric skin thickening of the anterior periareolar right breast magdiel red to the left. No suspicious mass, architectural distortion or cluster of suspicious microcalcifi cations is seen within the breasts. Targeted ultrasound was performed in the periareolar and retroareolar right breast. On visual inspe ction and described by the patient, there is focal skin thickening and small ovoid mass in the regio n of the 12:00 aspect of the nipple and 12:00 periareolar breast. The patient reported at the time of her subareolar abscess pus was draining from 2 puncta in this region. In the area of focal thick ening on ultrasound, there is hyperemia in the subdermal breast with ill-defined hypoechoic areas ju st deep to the dermis. However, there is no focal drainable fluid collection at this time. The hyp erechoic 4 mm mass that was previously seen within the subareolar abscess (described on prior ultras ound report) is no longer identified and may have simply represented a nidus of bacteria. The patien t also denies any nipple discharge through milk ducts. There is no longer edema surrounding fat lobu les in the periareolar right breast and there is decreased skin thickening since the previous ultras ound performed 08/19/2016. Overall, these findings are compatible with resolving infection. Given the patient reports a small amount of pus is still draining and there are still mammographic and son ographic signs of hyperemia and edema, would recommend a follow-up at time of complete resolution to ensure new baseline. IMPRESSION: ACR-BI-RADS CATEGORY 3: PROBABLY BENIGN, TARGETED ULTRASOUND ACR-BI-RADS CATEGORY 3: MD OBABLY BENIGN 1. There has been significant interval decrease in the previously observed right periareolar skin t hickening, edema as well as resolution of the previously observed 17 mm abscess in the subareolar ri ght breast. 2. Would recommend follow-up diagnostic evaluation in the right breast at complete resolution of sy mptoms to establish new baseline. 3. The 4 mm echogenic focus within the abscess is no longer identified and may have simply represen arminda a nidus of bacteria. Overall, there is no suspicious mammographic or sonographic mass or target ed evidence of malignancy. These results and recommendations were discussed with the patient at the time of the exam. Approximately 10% of breast cancers are not detected with mammography. A negative mammographic repor t should not delay biopsy if a clinically suggestive mass is present. Esther Yañez M.D. ay/:09/28/2016 12:46:07 Conveyancer: Petra WEBSTER(Sree)(M), [facility] letter sent: Follow Up Recommended 3 BI-RADS Code: ACR-BI-RADS Category 3: Probably Benign Ultrasound BI-RADS: ACR-BI-RADS Category 3: P robably Benign
== END | disposition home or self-care (01) ==
LOC: C.MAMM 09:24
PROVIDERS: ATTEND Surgery
DX: N61.1 Abscess of the breast and nipple (principal)

== ENCOUNTER → 2017-03-16 | Outpatient (CLI) | payer BC ==
[~2017-03-16] MED LIST changes: -CEPH500C2 PO
== END | disposition home or self-care (01) ==
LOC: C.LAB1850 15:45
PROVIDERS: ATTEND Obstetrics & Gynecology
DX: O09.299 Supervision of pregnancy with other poor reproductive or obstetric history, unspecified trimester (principal); Z3A.00 Weeks of gestation of pregnancy not specified

== ENCOUNTER → 2017-04-24 | Outpatient (CLI) | payer BC | END | disposition home or self-care (01) | LOC: C.PAPS 08:28 | PROVIDERS: ATTEND Obstetrics & Gynecology | DX: Z87.898 Personal history of other specified conditions (principal); Z01.419 Encounter for gynecological examination (general) (routine) without abnormal findings ==

== ENCOUNTER → 2017-04-24 | Outpatient (CLI) | payer BC ==
[2017-04-24 14:54] LABS: BASO % 0.4 %; BASO ABS # 0.03 K/uL (0-0.2); COMPLETE YES; EOS % 0.1 %; HEMATOCRIT 39.1 % (37-47); IG% 0.3 %; LYMPH % 29.5 %; LYMPH ABS # 2.25 K/uL (1.2-3.4); MEAN CELL VOLUME 88.5 fL (80-100); MEAN CORPUSCULAR HEMOGLOBIN 30.8 pg (25-34); MEAN CORPUSCULAR HGB CONC 34.8 g/dl (32-36); MEAN PLATELET VOLUME 9.8 fL (7.4-10.4); MONO % 8.3 %; NEUT % 61.4 %; PLATELET COUNT 319 K/uL (130-400); RED BLOOD COUNT 4.42 M/uL (4.2-5.4); WHITE BLOOD COUNT 7.62 K/uL (4.8-10.8)
[2017-04-24 16:22] LABS: URINE APPEARANCE CLEAR (CLEAR); URINE BILIRUBIN NEG (NEG); URINE COLOR YELLOW; URINE NITRITE NEG (NEG); URINE PH 7.5 (4.5-7.5); URINE SPECIFIC GRAVITY 1.023 (1.000-1.030); UROBILINOGEN NEG (NEG)
[2017-04-24 16:50] LABS: MANUAL MICROSCOPIC REQUIRED? NO; REVIEW REQ? NO
[2017-04-27 00:34] LABS: CHLAMYDIA TRACH RNA*** NOT DETECTED (NOT DETECTED); GC (NEIS GONORRHOEAE)RNA** NOT DETECTED (NOT DETECTED)
== END | disposition home or self-care (01) ==
LOC: C.LAB1850 12:45
PROVIDERS: ATTEND Obstetrics & Gynecology
DX: O09.521 Supervision of elderly multigravida, first trimester (principal); Z3A.00 Weeks of gestation of pregnancy not specified

== ENCOUNTER → 2017-06-07 | Outpatient (CLI) | payer BC | END | disposition home or self-care (01) | LOC: C.LAB1850 09:43 | PROVIDERS: ATTEND Obstetrics & Gynecology | DX: O28.1 Abnormal biochemical finding on antenatal screening of mother (principal) ==

== ENCOUNTER → 2017-07-06 | Outpatient (CLI) | payer BC ==
--- NOTE | 2017-07-06 09:36 | DIAGNOSTIC IMAGING REPORT ---
SOFT TISS HEAD/NECK-THYROID CLINICAL HISTORY: 37 years-old Female presenting with R22.1,R59.0. TECHNIQUE: Real-time grayscale and color Doppler ultrasound imaging of the right neck was performed at the site of clinical concern. COMPARISON: None. FINDINGS: At the site of clinical concern, a benign-appearing right cervical lymph node measures 1.4 x 0.6 x 0.3 cm. No hyperemia. No fluid collection. No significant sonographic abnormality is detected. Grossly normal appearing thyroid gland. IMPRESSION: Normal thyroid and benign right cervical lymph node. Electronically signed by: Shahram Shen M.D. 07/06/2017 9:35 AM Dictated Date/Time: 07/06/2017 9:34 AM
== END | disposition home or self-care (01) ==
LOC: C.ULTR 08:29
PROVIDERS: ATTEND Physician Assistant
DX: R59.0 Localized enlarged lymph nodes (principal)

== ENCOUNTER → 2017-08-25 | Outpatient (CLI) | payer OTHER | END | disposition home or self-care (01) | LOC: C.LABSPEC 10:53 | PROVIDERS: ATTEND Obstetrics & Gynecology | DX: O09.523 Supervision of elderly multigravida, third trimester (principal) ==

== ENCOUNTER → 2017-08-28 | Outpatient (CLI) | payer OTHER ==
[2017-08-28 09:39] LABS: HEMATOCRIT 33.3 % (37-47); HEMOGLOBIN 11.7 g/dL (12.0-16.0)
== END | disposition home or self-care (01) ==
LOC: C.LAB1850 08:14
PROVIDERS: ATTEND Obstetrics & Gynecology
DX: O09.523 Supervision of elderly multigravida, third trimester (principal)

== ENCOUNTER 2017-10-06 21:31 | Outpatient (CLI) | payer OTHER | END 2017-10-06 22:19 | disposition home or self-care (01) | LOC: C.LD 21:31 → C.OPB 21:31 | PROVIDERS: ATTEND Obstetrics & Gynecology | DX: O99.89 Other specified diseases and conditions complicating pregnancy, childbirth and the puerperium (principal); M54.9 Dorsalgia, unspecified; Z3A.00 Weeks of gestation of pregnancy not specified ==

== ENCOUNTER → 2017-10-20 | Outpatient (CLI) | payer OTHER | END | disposition home or self-care (01) | LOC: C.LABSPEC 11:21 | PROVIDERS: ATTEND Obstetrics & Gynecology | DX: O09.523 Supervision of elderly multigravida, third trimester (principal) ==

== ENCOUNTER 2017-11-14 07:45 | Inpatient (IN) | payer OTHER ==
[~2017-11-14] VITALS: Ht 165.1 cm; Wt 86.0 kg
[2017-11-14] MEDS ORDERED: LACTATED RINGER'S 1000ML 1,000 ML IV PRN (08:05)
[2017-11-14] MEDS ORDERED: LACTATED RINGER'S 1000ML 500 ML IV PRN ×2 (08:08→13:57)
[2017-11-14] MEDS ORDERED: OXYTOCIN 30 UNITS/500ML NSS IV PRN ×2 (08:15→19:00)
[2017-11-14 08:31] LABS: HEMATOCRIT 34.2 % (37-47); HEMOGLOBIN 11.5 g/dL (12.0-16.0); MEAN CELL VOLUME 87.5 fL (80-100); MEAN CORPUSCULAR HEMOGLOBIN 29.4 pg (25-34); MEAN CORPUSCULAR HGB CONC 33.6 g/dl (32-36); MEAN PLATELET VOLUME 9.3 fL (7.4-10.4); PLATELET COUNT 332 K/uL (130-400); RED CELL DISTRIBUTION WIDTH CV 14.1 % (11.5-14.5)
[2017-11-14 08:51] VITALS: Ht 165.1 cm; Wt 86.0 kg
[2017-11-14] MEDS ORDERED: PRENTAB26 PO (10:28)
[2017-11-14] MEDS ORDERED: BUPIVACAINE 0.25% 30 ML VIAL ONE (12:57)
[2017-11-14] MEDS ORDERED: EpHEDrine SULFATE INJ 50 MG/ML AMP ONE (12:57)
[2017-11-14] MEDS ORDERED: FENTANYL CITRATE INJ 50 MCG/1 ML 2 ML VIAL ONE (12:58)
[2017-11-14] MEDS ORDERED: FENTANYL 2MCG/ML ROPIV 1.25MG/ML 100ML BAG EPI ONE (12:59)
[2017-11-14] MEDS ORDERED: NALOXONE HCL INJ 1 MG in SODIUM CHLORIDE 0.9% 1000ML 1,000 ML IV PRN (13:57)
[2017-11-14] MEDS ORDERED: FENTANYL 2MCG/ML ROPIV 1.25MG/ML 100ML BAG EPI PRN (14:00)
[2017-11-14] MEDS ORDERED: NALBUPHINE HCL INJ 10 MG/ML AMP IV PRN (14:00)
[2017-11-14] MEDS ORDERED: NALOXONE HCL INJ 0.4 MG/1 ML VIAL/CARP IV PRN (14:00)
[2017-11-14] MEDS ORDERED: EpHEDrine SULFATE INJ 50 MG/ML AMP IV PRN (14:00)
[2017-11-14] MEDS ORDERED: ONDANSETRON INJ 2 MG/ML 2 ML VIAL IV PRN (14:00)
[2017-11-14] MEDS ORDERED: DiphenhydrAMINE HCL 50 MG/ML VIAL IV PRN (14:00)
[2017-11-14] MEDS ORDERED: PROMETHAZINE HCL INJ 6.25 MG in SODIUM CHLORIDE 0.9% 50ML 50 ML IV PRN (14:00)
[2017-11-14] MEDS: LACTATED RINGER'S 1000ML 1,000 ML IV SCH ×2 (15:05→17:08)
[2017-11-14] MEDS ORDERED: ACETAMINOPHEN 325 MG TAB PO PRN (19:00)
[2017-11-14] MEDS ORDERED: OXYCODONE/ACETAMINOPHEN 5-325 TAB PO PRN (19:00)
[2017-11-14] MEDS ORDERED: LANOLIN OINT EXT PRN (19:00)
[2017-11-14] MEDS ORDERED: HYDROCORTISONE ACETATE 25 MG SUPP PR PRN (19:00)
[2017-11-14] MEDS ORDERED: SUPERCREAM 0.870 % 15GM JAR EXT PRN (19:00)
[2017-11-14] MEDS ORDERED: BENZOCAINE 20% AER SPR 82.5 GM CAN EXT PRN (19:00)
--- NOTE | 2017-11-14 19:57 | DELIVERY SUMMARY ---
DATE OF OPERATION: 11/14/2017 PREDELIVERY DIAGNOSES: 1. A 37-year-old G5, P1-0-3-1 at 39 weeks and 6 days. 2. Insulin-dependent gestational diabetes. 3. Smoker. 4. Advanced maternal age. 5. Rubella nonimmune. POSTDELIVERY DIAGNOSES: 1. A 37-year-old G5, P1-0-3-1 at 39 weeks and 6 days. 2. Insulin-dependent gestational diabetes. 3. Smoker. 4. Advanced maternal age. 5. Rubella nonimmune. PROCEDURE: Spontaneous vaginal delivery. FINDINGS: Viable male . Apgars 8 and 9. Weight pending. Please see nursery records. ESTIMATED BLOOD LOSS: 300 mL. COMPLICATIONS: None. DISPOSITION: Stable and good. DESCRIPTION OF DELIVERY: The patient was brought in for labor induction due to GDMA2. She had artificial rupture of membranes performed and Pitocin was given and she progressed to complete with epidural anesthesia. She then began to push and spontaneously vaginally delivered a viable male from the cephalic presentation. The baby delivered with the head in the occiput anterior position. After the delivery of the head the shoulders rotated to right occiput anterior position and the anterior shoulder was delivered followed by the posterior shoulder followed by the body. No nuchal cord was noted. The baby was placed on the mother's abdomen. The cord was doubly clamped and cut. Baby was handed off to the waiting pediatrics team, where a spontaneous cry was heard. Cord segment was obtained. Cord blood was obtained. The placenta was then delivered spontaneously intact with a 3-vessel cord. Pitocin was given. The uterus and vagina were swept of all clots and debris and the uterus became firm. The cervix, vagina, and perineum were inspected and only a superficial right labial abrasion was noted and this was hemostatic, requiring no repair. Excellent hemostasis was observed. The mother and baby tolerated the delivery well and recovering in the room in stable and good condition. Sponge and instrument counts were correct at the conclusion of the delivery x2. I attest to the content of the Intraoperative Record and any orders documented therein. Any exception s are noted below.
[2017-11-14] MEDS: DOCUSATE SODIUM 100 MG CAP PO SCH (20:00)
--- NOTE | 2017-11-14 21:02 | Anesthesia Procedure Note ---
Anesthesia Epidural Removal Nt Date & Time Nov 14, 2017 at 21:01 Vital Signs Pain Intensity: 6.0 Notes Mental Status: alert / awake / arousable, participated in evaluation Nausea / Vomiting: adequately controlled Pain: adequately controlled Airway Patency, RR, SpO2: stable & adequate BP & HR: stable & adequate Hydration State: stable & adequate Neuraxial Anesthesia: was administered Anesthetic Complications: no major complications apparent, pt satisfied with anesthetic care Epidural: removed without complications, with tip intact
[2017-11-14] MEDS: IBUPROFEN 600 MG TAB PO PRN (22:38)
[2017-11-14 23:00] VITALS: BP 120/79; PULSE 79; TEMP 36.7
[2017-11-15 04:27] VITALS: BP 120/77; PULSE 70; TEMP 36.6
[2017-11-15 07:02] LABS: HEMOGLOBIN 10.5 g/dL (12.0-16.0)
--- NOTE | 2017-11-15 07:05 | Progress Note ---
Subjective Nov 15, 2017. Subjective conversation w/ patient, conversation w/ family, physical exam, chart review Ambulation: ambulating normally Passing Gas: Yes Diet Tolerance: Regular Diet Lochia: Small Feeding Type: Breast Feeding Review of Systems Constitutional: No fever, No chills Respiratory: No cough, No shortness of breath Cardiac: No chest pain, No palpitations Abdomen: No pain, No nausea Female : No dysuria Objective Vital Signs Date Time Temp Pulse Resp B/P (MAP) Pulse Ox O2 Delivery O2 Flow Rate FiO2 11/15/17 04:27 36.6 70 16 120/77 (91) Room Air 11/14/17 23:00 Room Air 11/14/17 23:00 36.7 79 18 120/79 (93) Room Air Physical Exam General Appearance: WELL-APPEARING, WD/WN, NO APPARENT DISTRESS Respiratory/Chest: chest non-tender, normal breath sounds Cardiovascular: regular rate, rhythm, no murmur Abdomen: non tender, soft Fundus: Firm, Relation to Umbilicus (at the level of the u) Extremities: non-tender, normal inspection Laboratory Results Last 24 Hours Test 11/14/17 08:22 11/14/17 09:47 11/14/17 11:49 11/14/17 14:01 White Blood Count 9.10 K/uL Red Blood Count 3.91 M/uL Hemoglobin 11.5 g/dL Hematocrit 34.2 % Mean Corpuscular Volume 87.5 fL Mean Corpuscular Hemoglobin 29.4 pg Mean Corpuscular Hemoglobin Concent 33.6 g/dl RDW Standard Deviation 45.0 fL RDW Coefficient of Variation 14.1 % Platelet Count 332 K/uL Mean Platelet Volume 9.3 fL Bedside Glucose 96 mg/dl 78 mg/dl 79 mg/dl Test 11/14/17 16:03 11/14/17 18:10 11/15/17 06:36 Bedside Glucose 76 mg/dl 75 mg/dl Assessment and Plan Problem List Medical Problems: (1) Nipple infection in female Status: Acute (2) Threatened in early Status: Acute (3) Vaginal bleeding in patient at less than 20 weeks gestation Status: Acute Post- Day#: 1 Continue Routine Care: 37 yo female, , O+/Rubella non-immune/GBS-, PPD1. Vital reviewed, WNL. Hgb 11.5 on admission, pending this am. No signs or sx of anemia. Doing well clinically. Plan; 1. Recovery from vaginal delivery; ambulate, support BF, monitor lochia, control pain 2. Discussed discharge Resident Physician Supervision Note: I was present with Dr. Titus during the history and exam. I discussed the case with the resident and agree with the findings and plan as documented in the note. Any exceptions or clarifications are listed here: Doing well, considering going home today. MMR today. Documented By: Desirae Jackson
--- NOTE | 2017-11-15 07:06 | Discharge Instructions ---
Discharge Instructions Date of Service Nov 15, 2017. Admission Reason for Admission: Induction Discharge Discharge Diagnosis / Problem: vaginal delivery Discharge Goals Goal(s): Routine recovery after delivery Medications Continue Dispensed Medications: supercream, dermaplast, tucks, lansinoh Activity Recommendations Activity Limitations: per Instructions/Follow-up section . Instructions / Follow-Up Instructions / Follow-Up ACTIVITY RECOMMENDATIONS: * Gradual return to full activity over the next 2-3 weeks. * No lifting - nothing heavier than baby over the next 2-3 weeks. * Do not engage in vigorous exercise, sexual activity or sports until cleared by your physician. * Do not drive or operate any motorized equipment until cleared by your physician. * You may shower/bathe daily. MEDICATIONS: For discomfort or pain, you may use Acetaminophen (Tylenol), Ibuprofen (Advil), or Naproxen (Aleve) following the package directions. For constipation you may use Colace following the package directions. BREAST CARE: If you are not breast feeding: * Wear a supportive bra 24 hours a day for one to two weeks. * Avoid stimulating your breasts and nipples as much as possible during the first few weeks after delivery. * When taking a shower, have the warm water hit your back, not breasts. * When your breasts feel full, apply ice packs. Usually three to four times a day helps ease the discomfort. * Take a mild pain medication (Tylenol / Motrin) when you are uncomfortable. If breast feeding: * Use breast milk to lubricate nipples. Lansinoh cream may be used for sore nipples. You do not need to remove cream prior to breast feeding. If using a different brand of cream, check the label for directions regarding removal of cream prior to nursing. * Wear a supportive bra. * If having problems with breasts or breast feeding, call a organizational development consultant or your health care provider. EPISIOTOMY CARE: After delivery, if you have an episiotomy (stitches), the following steps will ease discomfort and aid healing. * For the first 24 hours after delivery, place ice packs next to your episiotomy to help reduce swelling. * After the first 24 hour-period, sitz baths, either portable or in the tub, are suggested. A shower with a shower arm sprayed over the episiotomy may be comforting. * Kanchan care should be done after each voiding and bowel movement. Squirt warm water from a plastic bottle over the perineum (region of the body between the anus and urinary opening) and pat dry. * Use Dermoplast to ease discomfort. Shake container. [place] directly over the episiotomy. Place a Tucks on a clean sanitary pad next to your episiotomy. SPECIAL CARE INSTRUCTIONS: When you are discharged from the hospital, it is important for you to follow the instructions listed below: * During the first week at home, you should be able to care for yourself and your baby. In addition, the usual light household activities are encouraged. * Limit your activities to the way you feel. Do not try to clean the house or move furniture. Be sensible. * If you actively engage in sports and have done so up until the time of your delivery, you may resume these activities as soon as you feel able. This may take up to one month or even longer. Use good judgment. * Continue to take your vitamins for at least six weeks after the of your baby. * Your diet need not be limited unless you were on a special diet before your delivery. Breast-feeding mothers need around 2500 calories per day and at least 64-80 ounces of fluid per day (8 to 10 glasses). * You should eat foods from the four major food groups. Crash diets or fad diets are to be avoided. Eating lean meats, fresh fruits and vegetables, low-fat dairy products, high fiber foods and a regular exercise program, will help you get back to your pre- weight without putting your health at risk. * Constipation is sometimes a problem after delivery. Take a mild laxative as needed. If breast feeding, Milk of Magnesia is acceptable to use. You may use a suppository or Fleets enema if no episiotomy. * A daily shower or tub bath is suggested. Be sure to thoroughly and gently dry the perineum. * A bloody vaginal discharge will usually continue until around four weeks post . A small amount of bleeding may continue for as long as six weeks. Vaginal discharge changes from the bright red bleeding after delivery to pink then brownish and finally yellowish-pink before becoming white and disappearing. * Bleeding may increase with activity. Your first period may come in 4-8 weeks. If you are breast feeding, your period may be delayed even longer. * Hindman (sex) can begin whenever both you and your partner feel comfortable and do not have any form of genital infection. It is recommended that you wait at least six weeks for internal and external healing to occur. If you have questions, please talk to your health care practitioner. A condom should be used to prevent infection and . * Foreplay, gentle intercourse and lubrication is very important the first several times to prevent pain. A water-based lubricant such as K-Y jelly or Astroglide may be used. * If you have RH negative blood and your baby is RH positive, you will receive RHOGAM by injection prior to discharge. The nurse will give you a card to keep with you that has the date and place that you received RHOGAM after delivery. * During your care, you had a Rubella screen done to check for the presence of rubella antibodies in your blood. If your test was negative, you will receive a Rubella vaccine prior to discharge. This vaccine may cause a fever, soreness at the injection site and flu-like symptoms. If these symptoms persist, notify your health care practitioner. is not advised for one month after a Rubella vaccine. * Verbalizes understanding of car seat law as reviewed with patient nursing. * Car Seat hand-out given and reviewed with patient by nursing. * Shaken baby information reviewed with patient by nursing. Call you doctor if: * Heavy bleeding (saturating several pads an hour) or passing clots the size of your fist. * A fever >101 degrees F (38.3 degrees C) on two occasions four hours apart and /or chills. * Unusual pain in the pelvic or vaginal areas. * "Baby Blues" lasting longer than two weeks. If you have any questions or concerns, call your health care practitioner at . FOLLOW UP VISIT: * Please call the office at to schedule a 6 week examination. It is important you keep this appointment. It is important for you to make arrangements for either yearly or twice yearly check-ups thereafter. Current Hospital Diet Patient's current hospital diet: Regular OB Diet Discharge Diet Recommended Diet: Regular Diet, Regular OB Diet Pending Studies Studies pending at discharge: no Medical Emergencies . Who to Call and When: Medical Emergencies: If at any time you feel your situation is an emergency, please call [phone] immediately. . Non-Emergent Contact Non-Emergency issues call your: Primary Care Provider, Insect Control Aide . . "Provider Documentation" section prepared by Jamal Titus. .
[2017-11-15 08:00] VITALS: BP 111/76; PULSE 75; TEMP 36.7; O2SAT 95
[2017-11-15] MEDS: IBUPROFEN 600 MG TAB PO PRN ×3 (08:17→23:03)
[2017-11-15] MEDS: DOCUSATE SODIUM 100 MG CAP PO SCH ×2 (08:46→19:33)
[2017-11-15 11:25] VITALS: BP 123/80; PULSE 70; TEMP 37.2; O2SAT 96
[2017-11-15] MEDS ORDERED: NURSING VERBAL MED ORDER ONE (12:45)
[2017-11-15] MEDS ORDERED: MEASLES, MUMPS & RUBELLA VIRUS VIAL SQ. ONE (13:00)
[2017-11-15 15:30] VITALS: BP 108/77; PULSE 80; TEMP 36.6
[2017-11-15] MEDS ORDERED: BISACODYL 5 MG TABEC PO SCH (20:00)
[2017-11-15 23:15] VITALS: BP 113/69; PULSE 70; TEMP 36.5
--- NOTE | 2017-11-16 06:39 | Progress Note ---
Subjective Nov 16, 2017. Subjective conversation w/ patient, physical exam, chart review, lab review Ambulation: ambulating normally Voiding: no voiding problems Passing Gas: Yes Diet Tolerance: Regular Diet Lochia: Small Feeding Type: Breast Feeding Review of Systems Constitutional: No fever, No chills Respiratory: No cough, No sputum Cardiac: No chest pain, No palpitations Abdomen: No pain, No nausea, No vomiting Female : No dysuria Objective Vital Signs Date Time Temp Pulse Resp B/P (MAP) Pulse Ox O2 Delivery O2 Flow Rate FiO2 11/15/17 23:15 Room Air 11/15/17 23:15 36.5 70 18 113/69 (84) Room Air 11/15/17 15:30 Room Air 11/15/17 15:30 36.6 80 16 108/77 (87) Room Air 11/15/17 11:25 37.2 70 18 123/80 (94) 96 Room Air 11/15/17 08:00 36.7 75 18 111/76 (88) 95 Room Air 11/15/17 08:00 Room Air Physical Exam General Appearance: WELL-APPEARING, WD/WN, NO APPARENT DISTRESS Respiratory/Chest: lungs clear, no respiratory distress Cardiovascular: regular rate, rhythm, no murmur Abdomen: non tender, soft Fundus: Firm Extremities: non-tender, normal inspection Assessment and Plan Problem List Medical Problems: (1) Nipple infection in female Status: Acute (2) Threatened in early Status: Acute (3) Vaginal bleeding in patient at less than 20 weeks gestation Status: Acute Post- Day#: 2 Continue Routine Care: 37 yo female, , O+/Rubella non-immune--received MMR/GBS-, PPD2. Vital reviewed, WNL. Hgb 11.5 on admission, 10.5 yesterday am. No signs or sx of anemia. Doing well clinically. Plan; 1. Recovery from vaginal delivery; ambulate, support BF, monitor lochia, control pain 2. Discussed discharge planning Resident Physician Supervision Note: I interviewed and examined the patient. Discussed with Dr. Titus and agree with findings and plan as documented in the note. Any exceptions or clarifications are listed here: Doing well. Plan d/c. Instructions given. Documented By: Naya Kraus
[2017-11-16] MEDS: DOCUSATE SODIUM 100 MG CAP PO SCH (07:34)
[2017-11-16] MEDS: IBUPROFEN 600 MG TAB PO PRN (07:35)
[2017-11-16 08:00] VITALS: BP 128/74; PULSE 78; TEMP 36.8
[2017-11-16 11:34] VITALS: BP_DIAS 74; PULSE 78; TEMP 36.8
== END 2017-11-16 14:56 | disposition home or self-care (01) | DRG 775 ==
LOC: C.LD 07:45 → C.OBG 21:43
PROVIDERS: ADMIT Obstetrics & Gynecology; ATTEND Obstetrics & Gynecology
PROC: 10E0XZZ Delivery of Products of Conception, External Approach (ICD-10-PCS; principal; 2017-11-14)
PROC: 10903ZC Drainage of Amniotic Fluid, Therapeutic from Products of Conception, Percutaneous Approach (ICD-10-PCS; 2017-11-14)
PROC: 3E033VJ Introduction of Other Hormone into Peripheral Vein, Percutaneous Approach (ICD-10-PCS; 2017-11-14)
DX: O24.414 Gestational diabetes mellitus in pregnancy, insulin controlled (principal); O36.0930 Maternal care for other rhesus isoimmunization, third trimester, not applicable or unspecified; O99.334 Smoking (tobacco) complicating childbirth; F17.210 Nicotine dependence, cigarettes, uncomplicated; O09.523 Supervision of elderly multigravida, third trimester; Z3A.39 39 weeks gestation of pregnancy; Z37.0 Single live birth